=== PATIENT | male | born 1955 | race Caucasian/White ===

== ENCOUNTER 2019-12-06 14:00 | Emergency (ER) | payer OTHER, SELFPAY ==
[2019-12-06 14:02] VITALS: BP 199/127; PULSE 54; RESP 18; TEMP 36.3; O2SAT 99; BMI 24.5
[2019-12-06 14:23] VITALS: O2SAT 97
--- NOTE | 2019-12-06 14:34 | ED.DCSUM_ITS ---
History of Present Illness Chief Complaint: Shortness of Breath Informant: Patient Narrative: She presents the emergency department with a chief complaint of shortness of breath. Patient states that yesterday he began to feel short of breath. After an hour he went to lunch when he came back from lunch he felt extremely chilled with myalgias. He states that he ended up going home from work and had a temperature of 100.7. He states that he has not had any chest pain. He continues to feel short of breath and chilled. No fever today. He went to urgent care and was sent here. He has had COVID diagnosed about 7 weeks ago and states this feels very similar to that. Past Medical History - Allergies and Home Meds Allergies/Adverse Reactions: Allergies No Known Allergies Allergy (Verified 12/06/19 14:04) Prior records reviewed: Yes Surgical History: noncontributory Smoking Status: Never smoker Drugs: None Review of Systems General: Reports: Chills, Fever, Malaise. Denies: Sweats Eyes: Denies: Visual changes - bilaterally, Diplopia ENT: Denies: Rhinorrhea, Sore throat Cardiovascular: Denies: Chest pain, Palpitations Respiratory: Reports: Dyspnea. Denies: Cough, Dyspnea on exertion Gastrointestinal: Denies: Abdominal pain, Nausea, Vomiting, Diarrhea, Melena, Hematochezia Genitourinary: Denies: Dysuria, Hematuria, Frequency Musculoskeletal: Reports: Myalgias. Denies: Back pain, Extremity Pain Skin: Denies: Rash, Wounds Neurological: Denies: Headache, Weakness, Numbness Physical Exam Vital Signs/Narrative: Vital Signs Temp Pulse Resp BP Pulse Ox 12/06/19 14:02 97.3 F L 54 L 18 199/127 H 99 Inital Vital Signs reviewed: Yes General: Well nourished, Well developed, No Acute Distress Head: Normocephalic, Atraumatic Eyes: Perrl, EOMI ENT: Moist mucous membranes, No rhinorrhea Neck: Supple, Nontender Cardiovascular: Regular rate, Regular rhythm, No murmurs Respiratory: No distress, CTA bilaterally, Chest nontender Abdomen: Soft, Nontender, Nondistended, Normal bowel sounds Back: Nontender, Normal Inspection Extremities: Nontender, No edema Skin: Normal color, No rash Neurological: Alert, Oriented x3, Cranial nerves II-XII grossly intact, Normal Strength, Normal Sensation Psychological: Normal affect, Normal Mood Diagnostic/Tx/Re-eval Clinical Impression(s) from Imaging Studies Chest CTA 12/06/19 16:06 IMPRESSION: CTA chest examination, without a demonstrated pulmonary embolism or arterial dissection. Aneurysmal dilatation of the ascending aorta. Small benign-appearing left lung nodules. CT FOLLOW-UP OF SMALL PULMONARY NODULES [employer] GUID[employer] STATEMENT *Nodule size is average of length and width.* Nodule size. Low risk patient. Non smoking history/no known malignancy. 1. <4mm -- No follow-up needed (risk of malignancy <1%) 2. 4-6mm -- Follow up CT at 12 months, if unchanged, no further imaging needed. 3. 6-8mm -- Initial follow up at 6-12 month, then at 18-24 months if no changes. 4. > 8mm -- Follow-up CT at 3, 9, 24 months, PET and /or biopsy. Nodule size. High risk patients. Smoking history/known malignancy. 1. <4mm -- Follow-up 12 months: if unchanged, no further follow-up. 2. 4-6mm -- Initial follow-up at 6-12 months,then at 18-24 months if no change. 3. 6-8mm -- Initial follow-up at 3-6months, then at 9-12 and 24 months if no change. 4. >8mm -- Same as for low risk patient. Electronically Signed: Taiwo Barksdale MD at 16:52 EDT , Service support , Laboratory Last Values WBC 3.8 K/mm3 (4.4-11.0) L 12/06/19 15:20 RBC 5.31 M/mm3 (4.6-6.2) 12/06/19 15:20 Hgb 15.7 g/dL (13.0-16.5) 12/06/19 15:20 Hct 47.0 % (40-54) 12/06/19 15:20 MCV 88.5 fL (80-94) 12/06/19 15:20 MCH 29.6 pg (27.0-32.0) 12/06/19 15:20 MCHC 33.4 g/dL (32-36) 12/06/19 15:20 RDW Std Deviation 43.4 fl (35.1-43.9) 12/06/19 15:20 RDW Coeff of Shayne 13.3 % (11.6-14.6) 12/06/19 15:20 Plt Count 277 K/mm3 (150-450) 12/06/19 15:20 MPV 10.3 fl (6.2-12.0) 12/06/19 15:20 Immature Gran % (Auto) 1.300 % (0.0-0.9) H 12/06/19 15:20 Neut % (Auto) 58.0 % (47-70) 12/06/19 15:20 Lymph % (Auto) 23.6 % (19-41) 12/06/19 15:20 [place] % (Auto) 11.3 % (0-10) H 12/06/19 15:20 Eos % (Auto) 5.0 % (0-5) 12/06/19 15:20 Baso % (Auto) 0.8 % (0-1) 12/06/19 15:20 Absolute Neuts (auto) 2.2 X10^3/uL (2.0-7.7) 12/06/19 15:20 Absolute Lymphs (auto) 0.90 X10^3/uL (0.83-4.51) 12/06/19 15:20 Nucleated RBC % 0 % (0-5) 12/06/19 15:20 Sodium 141 mmol/L (136-145) 12/06/19 15:20 Potassium 3.7 mmol/L (3.5-5.1) 12/06/19 15:20 Chloride 106 mmol/L (98-107) 12/06/19 15:20 Carbon Dioxide 32.0 mmol/L (21.0-32.0) 12/06/19 15:20 Anion Gap 3 (5-15) L 12/06/19 15:20 BUN 12 mg/dL (7-18) 12/06/19 15:20 Creatinine 1.05 mg/dL (0.70-1.30) 12/06/19 15:20 Estim Creat Clear Calc 75.32 ml/min 12/06/19 15:20 Est GFR (MDRD) Af Amer 92 mL/min (>60) 12/06/19 15:20 Est GFR (MDRD) Non-Af 76 mL/min (>60) 12/06/19 15:20 BUN/Creatinine Ratio 11.4 RATIO (10-20) 12/06/19 15:20 Glucose 95 mg/dL (74-106) 12/06/19 15:20 Calcium 8.8 mg/dL (8.5-10.1) 12/06/19 15:20 Total Bilirubin 0.60 mg/dL (0.20-1.00) 12/06/19 15:20 AST 32 U/L (15-37) 12/06/19 15:20 ALT 47 U/L (16-61) 12/06/19 15:20 Alkaline Phosphatase 52 U/L (45-117) 12/06/19 15:20 Troponin I 0.031 ng/mL (<0.045) 12/06/19 15:20 Total Protein 7.2 g/dL (6.4-8.2) 12/06/19 15:20 Albumin 3.2 g/dL (3.2-5.0) 12/06/19 15:20 Globulin 4.0 g/dL (2.2-4.2) 12/06/19 15:20 Albumin/Globulin Ratio 0.8 RATIO (0.9-2.4) L 12/06/19 15:20 - EKG Initial EKG Interpretation: Sinus Rhythm - EKG demonstrated sinus bradycardia with frequent PVCs at a rate of 78. No concerning features of ACS. - Medical Decision Making Patient's labs showed a mild leukopenia at 3.8. CTA of the chest is negative. EKG of heart demonstrates a sinus bradycardia with frequent PVCs. There are less on the monitor than what were recorded on the EKG. He remains pretty hypertensive he tells me that he does check his blood pressure and is typically been about 135. He takes amlodipine and lisinopril. I advised him that he needs to establish new primary care but this is may be difficult for him because he is working on getting new health insurance. I talked about the nodules and the aortic aneurysm. Going to write for an albuterol MDI. Take him off work for the next couple days. If he is not improving or is worsening he needs to return. ED Disposition - Plan for ED Patient: Disposition: Home or Assisted Living Diagnosis: Dyspnea Instructions: ED Dyspnea Prescriptions: Albuterol Inhaler [Ventolin Hfa] 2 puff INHALATION Q4H PRN PRN #1 inhaler PRN Reason: Wheezing Prescription Printed Referrals: Care Physician,No Primary [Primary Care Provider] - Barry Chang MD [STAFF PHYSICIAN] - 3-5 Days Additional Instructions: You need to monitor blood pressure closely. If your blood pressure continues to be elevated your blood pressure medications need to be adjusted. On the CT of your chest today it was noted that you have a small aneurysm of your aorta measuring 4.8 cm. This is classically below the size that would need to be operated on. However it does require follow-up and monitoring. There were several nodules found on your CT of your chest that should also have follow-up. Usually in patients who are non-smokers less than 4 mm do not need follow-up. Ureters are less than 4 mm. If over the next few days you are worsening or you have concerns please return here to the emergency department.
--- NOTE | 2019-12-06 14:34 | EKG12_ITS ---
Test Reason : SOB Blood Pressure : / mmHG Vent. Rate : 078 BPM Atrial Rate : 053 BPM P-R Int : 182 ms QRS Dur : 098 ms QT Int : 394 ms P-R-T Axes : 043 070 040 degrees QTc Int : 449 ms Sinus bradycardia with frequent Premature ventricular complexes Otherwise normal ECG Confirmed by KELLY ALLEN, ADELAIDA ([id number]), commissioning editor PAT ESTRADA ([id number]) on 12/14/2019 12:57:56 P M Referred By: NOY Confirmed By:ANDREW MENDOZA MD
--- NOTE | 2019-12-06 14:37 | NURSING ---
NO OLD EKGS
[2019-12-06 15:36] LABS: Absolute Neutrophil Count 2.2 X10^3/uL (2.0-7.7); Basophil# 0.03 X10^3/uL; Basophil% 0.8 % (0-1); Eosinophil# 0.19 X10^3/uL; Hemoglobin 15.7 g/dL (13.0-16.5); Lymphocyte % 23.6 % (19-41); Mean Corp Hgb Conc 33.4 g/dL (32-36); Mean Corpuscular Hgb 29.6 pg (27.0-32.0); Mean Corpuscular Volume 88.5 fL (80-94); Mean Platelet Vol. 10.3 fl (6.2-12.0); Monocyte# 0.43 X10^3/uL; Monocyte% 11.3 % (0-10); NRBC Flagged by Analyzer 0 % (0-5); Neutrophil # 2.21 X10^3/uL (2.7-7.7); Platelet Count 277 K/mm3 (150-450); RBC Distribution Width CV 13.3 % (11.6-14.6); RBC Distribution Width SD 43.4 fl (35.1-43.9); Red Blood Count 5.31 M/mm3 (4.6-6.2); White Blood Count 3.8 K/mm3 (4.4-11.0)
[2019-12-06 15:46] VITALS: BP 184/107; PULSE 68; RESP 18; O2SAT 97
[2019-12-06 15:58] LABS: ALB/GLOB Ratio 0.8 RATIO (0.9-2.4); AST(SGOT) 32 U/L (15-37); Alanine Aminotransfer ALT/SGPT 47 U/L (16-61); Albumin, Serum 3.2 g/dL (3.2-5.0); Alkaline Phosphatase 52 U/L (45-117); Anion Gap 3 (5-15); BUN 12 mg/dL (7-18); BUN/Creat Ratio 11.4 RATIO (10-20); Calcium,Total 8.8 mg/dL (8.5-10.1); Chloride 106 mmol/L (98-107); Creatinine, Serum 1.05 mg/dL (0.70-1.30); EST Glomerular Filtration Rate 76 mL/min (>60); Est Glom Filt Rate - Afr Amer 92 mL/min (>60); Estimated Creatinine Clearance 75.32 ml/min; Glucose 95 mg/dL (74-106); Potassium 3.7 mmol/L (3.5-5.1); Protein, Total 7.2 g/dL (6.4-8.2); Sodium Level 141 mmol/L (136-145)
--- NOTE | 2019-12-06 16:06 | CT_ITS ---
STUDY: CTA CHEST REASON FOR EXAM: Male, 64 years old. CP, SOB, CHILLS, +COVID 7 WKS AGO RADIATION DOSAGE (If Supplied By Facility): CTDIvol = ( 14.52 ) mGy, DLP = ( 518.45 ) mGycm TECHNIQUE: The examination was performed with the intravenous administration of IV 100ML ISOVUE 370. Post-processing of the angiographic images was performed, with multiplanar reformation and 3D reconstruction. Individualized dose optimization techniques were used for this CT. COMPARISON: None. FINDINGS: Normal enhancement of the main pulmonary artery and right and left pulmonary arteries. There is limited enhancement of the bilateral peripheral pulmonary arteries. There is no demonstrated pulmonary embolism. There is aneurysmal dilatation of the ascending aorta. The transverse diameter of the ascending aorta measures 48 mm''s. There is no demonstrated aortic dissection. Normal heart and pericardium. Normal mediastinum. Normal hilar regions. Normal visualized trachea and bronchi. The lungs are well expanded. There is lower lung atelectasis. There is a 0.3 cm left upper lobe nodule, series 1002 image 171/257. There is 0.4 cm left mid lung nodule, series 1002 image 138/257 . Normal pleura. Normal chest wall structures. Mild degenerative change of the spine. Normal visualized upper abdomen. CT/CTA Chest W/WO Contrast IMPRESSION: CTA chest examination, without a demonstrated pulmonary embolism or arterial dissection. Aneurysmal dilatation of the ascending aorta. Small benign-appearing left lung nodules. CT FOLLOW-UP OF SMALL PULMONARY NODULES [employer] GUID[employer]INES STATEMENT *Nodule size is average of length and width.* Nodule size. Low risk patient. Non smoking history/no known malignancy. 1. <4mm -- No follow-up needed (risk of malignancy <1%) 2. 4-6mm -- Follow up CT at 12 months, if unchanged, no further imaging needed. 3. 6-8mm -- Initial follow up at 6-12 month, then at 18-24 months if no changes. 4. > 8mm -- Follow-up CT at 3, 9, 24 months, PET and /or biopsy. Nodule size. High risk patients. Smoking history/known malignancy. 1. <4mm -- Follow-up 12 months: if unchanged, no further follow-up. 2. 4-6mm -- Initial follow-up at 6-12 months,then at 18-24 months if no change. 3. 6-8mm -- Initial follow-up at 3-6months, then at 9-12 and 24 months if no change. 4. >8mm -- Same as for low risk patient. Electronically Signed: Taiwo Barksdale MD at 16:52 EDT , Service support ,
[2019-12-06 17:34] VITALS: BP 180/96
[2019-12-06 17:52] LABS: Bacteria 0 SEEN /hpf (None Seen); Mucous, Urine 0 SEEN /hpf (<or=2+); Red Blood Cells-Urine 0 SEEN /hpf (0-5); Squamous Epithelial Cells - UA 0 SEEN /hpf (0-5); White Blood Cells 0 SEEN /hpf (0-5)
[2019-12-06 17:58] LABS: Color, Urine Yellow (Yellow); Glucose, Dipstick Normal (Normal); Ketone-Dipstick Negative (Negative); Leukocyte Esterase-Dipstick Negative /ul (Negative); Nitrite-Dipstick Negative (Negative); Occult Blood-Urine Negative /ul (Negative); Protein-Dipstick Negative (Negative); Specific Gravity, Urine 1.015 (1.002-1.030); Urine Bilirubin Dipstick Negative (Negative); Urine Clarity Clear (Clear); Urine Urobilinogen Normal (Normal)
== END 2019-12-06 17:40 | disposition home or self-care (01) ==
PROVIDERS: Emergency Provider Emergency Medicine
DX: R06.00 Dyspnea, unspecified (principal); I71.2 Thoracic aortic aneurysm, without rupture; Z87.891 Personal history of nicotine dependence; R91.8 Other nonspecific abnormal finding of lung field
CPT/HCPCS: 71275; 80053; 81001; 84484; 85025; 93005; 99283; Q9967; A4216

== ENCOUNTER 2023-04-13 09:31 | Emergency (ER) | payer MEDICARE, SELFPAY ==
[2023-04-13 09:32] VITALS: BP 167/87; PULSE 55; RESP 14; TEMP 36.8; O2SAT 99; BMI 25.8
--- NOTE | 2023-04-13 10:00 | RAD_ITS ---
STUDY: X-RAY - UNILATERAL RIBS ( LEFT ) WITH CHEST REASON FOR EXAM: Male, 67 years old. Left lower anterior rib pain following a fall. TECHNIQUE - RIBS: 4 view(s) of the ribs. TECHNIQUE - CHEST: Single PA view of the chest. COMPARISON: None. FINDINGS - RIBS: Normal visualized ribs without a demonstrated fracture. FINDINGS - CHEST: The lungs are clear and expanded. There is no demonstrated pleural abnormality. Normal size heart. Normal mediastinum and leta. Normal visualized pulmonary arteries. Normal visualized aortic arch and descending thoracic aorta. Normal visualized thoracic spine. Normal visualized ribs, clavicles, and shoulders. There is no demonstrated abnormality of the visualized soft tissue structures of the upper abdomen. RAD/Ribs Uni Min 3V w/PA Chest IMPRESSION: RIBS: Normal x-ray examination of the ribs. CHEST: Normal x-ray examination of the chest. Electronically Signed: Kartik Serrano MD at 10:45 EST ,
[2023-04-13] MEDS: HYDROcodone Bitartrate/Apap 5/325 Tablet PO (10:10)
--- NOTE | 2023-04-13 10:59 | EX.ED.GENINJ ---
HPI History of Present Illness Chief Complaint: Chest Other Informant: patient Narrative Narrative: Patient fell several days ago, this past week, he states he slipped on some steps outside and the curvature of the step hit him in the left lower posterior rib cage. He has been having pain ever since especially when he is lying down trying to sleep at night. It hurts more to move, if he takes a really deep breath it hurts but he denies any dyspnea or chest discomfort. No abdominal discomfort, hematuria, or symptoms radiating down his legs. No other injuries. [facility] Medical History HLD (hyperlipidemia) HTN (hypertension) TIA (transient ischemic attack) Home Medications albuterol sulfate 90 mcg/actuation aerosol inhaler 2 puff inhalation Q4H PRN PRN Wheezing ##1 12/06/19 [Rx Last Taken Unknown] hydrocodone-acetaminophen 5-325mg 5mg-325mg 1 tab PO Q6H PRN PRN Pain 3 days #12 TABLETS 04/13/23 [Rx Last Taken Unknown] Allergy/AdvReac Type Severity Reaction Status Date / Time No Known Allergies Allergy Verified 04/13/23 09:32 Surgical History (Updated 04/13/23 @ 10:09 by Kathy Epstein) Hx of appendectomy Hx of tonsillectomy Social History Smoking Status: Former smoker ROS ROS ED Constitutional Constitutional ED: Denies chills or fever(s) Eyes Eyes: Denies change in vision or diplopia ENT ENT ED: Denies rhinorrhea or sore throat Cardiovascular Cardiovascular: Denies chest pain or palpitations Respiratory/Chest Respiratory/Chest: Denies cough or dyspnea Gastrointestinal Gastrointestinal: Denies abdominal pain, diarrhea, nausea or vomiting Genitourinary Genitourinary ED: Denies dysuria or hematuria Musculoskeletal Musculoskeletal: Reports back pain; Denies neck pain Integumentary Denies abscess or rash Neurologic Neurologic: Denies headache(s), paresthesias or weakness Psychiatric Psychiatric: Denies anxiety or suicidal thoughts EXAM Physical Exam Const Vital Signs: 04/13/23 09:32 04/13/23 10:08 Temperature 98.2 F Temperature Source Temporal Pulse Rate 55 L Respiratory Rate 14 Respiratory Effort Normal Non-Labored Blood Pressure 167/87 H Blood Pressure Mean 113 Pulse Ox 99 Oxygen Delivery Method Room Air Positive well nourished and well developed General Appearance ED: well developed and NAD HEENT Reports moist mucous membranes normocephalic and atraumatic Eyes PERRL and EOMs intact bilaterally Neck full ROM and supple Chest Wall inspection of chest normal and palpation of chest normal Resp normal respiratory effort and clear to auscultation bilaterally Cardio regular rate, regular rhythm and no murmurs GI non-tender and non-distended Auscultation: normoactive bowel sounds Palpation: soft Back/Spine no CVA tenderness and normal to inspection Back/Spine Narrative: Patient has no midline spinal tenderness. There is no signs of outward Trauma/injury in the back, but he has diffuse tenderness in the right lower posterior rib cage, approximately ribs 8-11. General Back: other limited ROM Extremity normal to inspection General Extremety ED: Negative for edema, pulses abnormal or tenderness General Extremity: Negative for edema or pulses abnormal Neuro oriented x3, CN's II-XII intact bilaterally and no sensory deficits noted Sensorium / Orientation: awake and alert Motor Exam: strength 5/5 throughout Skin no rashes or lesions noted and no wounds MDM MDM MDM Narrative Medical decision making narrative: 4 view x-ray series of the left rib cage including PA chest normal in my interpretation no fracture or pneumothorax. Radiology in agreement. No concern here for renal contusion since he has had no urinary symptoms or hematuria at this time. Reassured likely contusion, nondisplaced fracture is not able to be completely ruled out, supportive care advised, he was given a work note that he does lifting at work, and he states he is barely able to move much less lift anything which is understandable. He was given [place] here which helped I will give him a short course for nighttime use. Radiography Diagnostic Testing: Clinical Impression(s) from Imaging Studies Ribs w/Chest X-Ray 04/13/23 10:00 IMPRESSION: RIBS: Normal x-ray examination of the ribs. CHEST: Normal x-ray examination of the chest. Electronically Signed: Kartik Serrano MD at 10:45 EST , Discharge Plan Triage Chief Complaint: Chest Other ED Provider: Taiwo Marino Dx/Rx/DC Orders Clinical Impression: Contusion of rib on left side Instructions: ED Rib Contusion or Minor Fracture Prescriptions: New hydrocodone-acetaminophen [hydrocodone-acetaminophen] 5-325 mg tablet 1 tab PO Q6H PRN PRN (Reason: Pain) 3 Days Qty: 12 0RF No Action albuterol sulfate 1 INHALER inhaler 2 puff inhalation Q4H PRN PRN (Reason: Wheezing) Qty: 1 0RF Rx Instructions: dispense with Spacer Stand Alone Forms: ED Work / School Excuse Primary Care Provider: Dillan Abel Referrals: Dillan Abel MD [Primary Care Provider] - 1-2 Weeks Disposition Disposition: Home, Self Care
--- OUTSIDE RECORDS SUMMARY | 2023-04-13 11:09 | XMS RPT_ITS | CCD ---
Author Name Unknown Address [address] [place] [address] Organization [facility] Care Team Providers Care Hand Salter Name Role Phone NAT, JAYRAM Unavailable Unavailable MARI, ROGERIO Unavailable Unavailable NAT, JAYRAM Unavailable Unavailable NAT, JAYRAM Unavailable Unavailable MARI, ROGERIO Unavailable Unavailable NAT, JAYRAM Unavailable Unavailable Mari, Dillan Unavailable Unavailable Mari, Dillan Unavailable Unavailable NAT, JAYRAM Unavailable Unavailable Mari, Dillan Unavailable Unavailable Mari, Dillan Unavailable Unavailable NAT, JAYRAM Unavailable Unavailable Mari, Dillan Unavailable Unavailable Dillan Mari MD Primary Care Provider [phone] Colten ALLEN, Dillan Lyle Primary Care Provider [phone] DILLAN MARI Primary Care Unavailable DILLAN MARI Attending Unavailable DILLAN MARI Referring Unavailable DILLAN MARI Primary Care Unavailable MARIDILLAN ZUNIGA Referring Unavailable DILLAN MARI Primary Care Unavailable DILLAN MARI Attending Unavailable DILLAN MARI Primary Care Unavailable JANET SRIVASTAVA Referring Unavailable DILLAN MARI Primary Care Unavailable DILLAN MARI Referring Unavailable DILLAN MARI Primary Care Unavailable OLDER JANET Attending Unavailable DILLAN MARI Primary Care Unavailable DILLAN MARI Referring Unavailable Medications Current Medications Medication Drug Class(es) Dates Sig (Normalized) Sig (Original) perflutren lipid microspheres 1.3 mL in NaCl (PF) 0.9% 10 mL injection (DEFINITY) (4 sources) Start: 02-27-2021 End: 05-29-2022 perflutren lipid microspheres 1.3 mL in NaCl (PF) 0.9% 10 mL injection (DEFINITY) 125 ml sodium chloride 9 mg/ml prefilled syringe (4 sources) Start: 02-27-2021 End: 05-29-2022 sodium chloride 0.9 % (flush) 10 mL (BD POSIFLUSH) Completed/Discontinued Medications Medication Drug Class(es) Dates Sig (Normalized) Sig (Original) amLODIPine 10 mg oral tablet (7 sources) Dihydropyridine Calcium Channel Eloina Start: 11-23-2022 take 1 tablet by mouth once daily amLODIPine (NORVASC) 10 mg tablet Take 1 tablet by mouth once daily. 90 tablet 3 11/23/2022 Active Problems Active Problems Problem Classification Problem Date Documented Date Episodic/Chronic Acute cerebrovascular disease (8 sources) Cerebellar infarction; Translations: [Cerebral infarction, unspecified] Onset: 02-27-2021 02-27-2021 Chronic Disorders of lipid metabolism (10 sources) Mixed hyperlipidemia; Translations: [Mixed hyperlipidemia] Onset: 07-30-2005 08-31-2017 Chronic Esophageal disorders (7 sources) Gastroesophageal reflux disease; Translations: [Gastro-esophageal reflux disease without esophagitis] Onset: 02-27-2021 02-27-2021 Chronic Essential hypertension (11 sources) Benign essential hypertension; Translations: [Essential (primary) hypertension] Onset: 07-30-2005 08-31-2017 Chronic Immunizations and screening for infectious disease (2 sources) Needs influenza immunization; Translations: [Encounter for immunization] Episodic Other ear and sense organ disorders (1 source) Impacted cerumen of bilateral ears; Translations: [Impacted cerumen, bilateral] Episodic Other liver diseases (3 sources) Lesion of liver; Translations: [Liver disease, unspecified] Onset: 04-21-2021 04-21-2021 Chronic Other liver diseases (1 source) Liver cyst; Translations: [Other specified diseases of liver] Chronic Other screening for suspected conditions (not mental disorders or infectious disease) (12 sources) Raised prostate specific antigen; Translations: [Elevated prostate specific antigen [PSA]] Onset: 08-31-2017 08-31-2017 Episodic Other screening for suspected conditions (not mental disorders or infectious disease) (1 source) Elevated prostate specific antigen [PSA]; Translations: [Elevated prostate specific antigen (PSA)] Onset: 08-31-2017 Residual codes; unclassified (4 sources) Obstructive sleep apnea syndrome; Translations: [Obstructive sleep apnea (adult) (pediatric)] Onset: 09-14-2021 09-14-2021 Chronic Residual codes; unclassified (1 source) Other specified postprocedural states; Translations: [Other specified postprocedural states] Onset: 01-26-2018 Unclassified (2 sources) Unknown / UNK(Unknown) Onset: 08-31-2017 Past or Other Problems Problem Classification Problem Date Documented Da te Episodic/Chronic Blindness and vision defects (7 sources) Right homonymous hemianopsia; Translations: [Homonymous bilateral field defects, right side] Onset: 02-27-2021 02-27-2021 Episodic Cardiac dysrhythmias (7 sources) Bradycardia; Translations: [Bradycardia, unspecified] Onset: 02-17-2021 02-17-2021 Episodic Genitourinary symptoms and ill-defined conditions (3 sources) Nocturia; Translations: [Nocturia] Onset: 2021 2021 Episodic Other lower respiratory disease (4 sources) Dyspnea; Translations: [Shortness of breath] Onset: 02-18-2021 02-18-2021 Episodic Other non-epithelial cancer of skin (7 sources) Squamous cell carcinoma of lip; Translations: [Squamous cell carcinoma of skin of lip] Onset: 08-31-2017 08-31-2017 Episodic Unclassified (1 source) Elevated prostate specific antigen (PSA) Onset: 01-12-2018 Results Test Name Value Interpretation Reference Range Facil ity Vital Signs Date Time Vital Sign Value Performing Clinician Faci lity 05-21-2022 10:03-0500 Diastolic blood pressure 88 mm[Hg] Dillan Mari MD Work Phone: [facility] 05-21-2022 10:03-0500 Heart rate 58 /min Dillan Mari MD Work Phone: [facility] 05-21-2022 10:03-0500 Systolic blood pressure 142 mm[Hg] Dillan Mari MD Work Phone: [facility] 05-21-2022 09:54-0500 Body weight 79.83 kg Dillan Mari MD Work Phone: [facility] 05-21-2022 09:54-0500 Respiratory rate 12 /min Dillan Mari MD Work Phone: [facility] 02-20-2022 08:42-0500 Body height 177.8 cm Dillan Mari MD Work Phone: [facility] 02-20-2022 08:42-0500 Body temperature 97.3 [degF] Dillan Mari MD Work Phone: [facility] 02-20-2022 08:42-0500 Body weight 79.38 kg Dillan Mari MD Work Phone: [facility] 02-20-2022 08:42-0500 Diastolic blood pressure 68 mm[Hg] Dillan Mari MD Work Phone: [facility] 02-20-2022 08:42-0500 Heart rate 59 /min Dillan Mari MD Work Phone: [facility] 02-20-2022 08:42-0500 Respiratory rate 12 /min Dillan Mari MD Work Phone: [facility] 02-20-2022 08:42-0500 SaO2% (BldA) [Mass fraction] 96 % Dillan Mari MD Work Phone: [facility] 02-20-2022 08:42-0500 Systolic blood pressure 110 mm[Hg] Dillan Mari MD Work Phone: [facility] Encounters Encounter Date Encounter Type Care Provider Facility Start: 11-30-2022 End: 11-30-2022 ambulatory DILLAN MARI Facility:[facility] Start: 11-30-2022 End: 11-30-2022 Subsequent hospital visit by physician [facility] Work Phone: Radiology Procedures Date Procedure Procedure Detail Performing Clinician Start: 11-30-2022 Us abdominal aorta r eal time screen study aaa Janet Older 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 Work Phone: Start: 11-25-2022 Lipid 1996 panel - S damon or Plasma Us 2 Work Phone: Start: 02-20-2022 [employer]cast-BIONTetrigg COVI D-19 BIVALENT BOOSTER VACCINE, AGE 12+ YR Dillan Mari MD Work Phone: Start: 02-20-2022 INFLUENZA VACCINE QUADRIVALENT 6 MO - 64 YRS IM Dillan Mari MD Work Phone: Start: 06-18-2021 Mri brain brain stem w/o contrast material Dillan Mari MD Work Phone: Start: 06-18-2021 Us abdominal real ti me w/image limited Haley Briseno 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 Work Phone: Start: 07-23-2020 Adult depression scr eening assessment Mri (I-Stat/1.5t) Work Phone: Start: 07-23-2020 Colonoscopy Mri (I-Sta t/1.5t) Work Phone: Plan of Treatment Date Care Activity Detail Author Start: 07-23-2030 Colonoscopy COLONOSCOPY [facility] Start: 07-23-2030 COLORECTAL CANCER SCREENING COLORECTAL CANCER SCREENING [facility] Start: 11-26-2027 Lipid 1996 panel - Serum or Plasma Lipid Screening [facility] Start: 11-26-2027 Prostate Cancer Screening Discussion Prostate Cancer Screening Discussion [facility] Start: 05-20-2027 LIPID SCREEN LIPID SCREEN [facility] Start: 05-20-2027 PROSTATE CANCER SCREENING DISCUSSION PROSTATE CANCER SCREENING DISCUSSION [facility] Start: 02-12-2026 LIPID SCREEN LIPID SCREEN [facility] Start: 11-25-2025 Diabetes Screening Diabetes Screening [facility] Start: 06-28-2025 PROSTATE CANCER SCREENING DISCUSSION PROSTATE CANCER SCREENING DISCUSSION [facility] Start: 05-19-2025 DIABETES SCREEN DIABETES SCREEN [facility] Start: 11-19-2024 DIABETES SCREEN DIABETES SCREEN [facility] Start: 06-01-2024 Urine microalbumin profile [facility] Start: 02-19-2024 DIABETES SCREEN DIABETES SCREEN [facility] Start: 11-24-2023 Annual PCP Team Chronic Disease Visit Annual PCP Team Chronic Disease Visit [facility] Start: 07-05-2023 COLOGUARD (FIT-DNA) COLOGUARD (FIT-DNA) [facility] Start: 05-22-2023 ANNUAL PCP TEAM CHRONIC DISEASE VISIT ANNUAL PCP TEAM CHRONIC DISEASE VISIT [facility] Start: 02-20-2023 ANNUAL PCP TEAM CHRONIC DISEASE VISIT ANNUAL PCP TEAM CHRONIC DISEASE VISIT [facility] Start: 02-20-2023 BP CONTROLLED (<130/80) BP CONTROLLED (<130/80) [facility] Start: 11-21-2022 End: 01-21-2023 Basic metabolic 2000 panel - Serum or Plasma BASIC METABOLIC PNL Lab Routine Mixed hyperlipidemia Expected: 11/21/2022, Expires: 01/21/2023 [facility] Work Phone: Immunizations Immunization Date Immunization Notes Care Provider Fa cility 11-23-2022 influenza (HD-IIV4) vaccine, age 65+ yr, high dose, quadrivalent, PF (FLUZONE HIGH-DOSE) Us 2 Work Phone: [facility] Work Phone: 11-23-2022 pneumococcal (PCV20) vaccine, 20 valent (PREVNAR 20) Us 2 Work Phone: [facility] Work Phone: 02-20-2022 COVID-19 booster vaccine, age 12+ yr, bivalent (PFIZER-BIONTECH) Dillan Mari MD Work Phone: [facility] Work Phone: 02-20-2022 influenza, injectabl e, quadrivalent, contains preservative Dillan Mari MD Work Phone: [facility] Work Phone: 02-27-2021 COVID-19 vaccine, ag e 12+ yr (PFIZER-BIONTECH - PURPLE TOP) Mri (I-Stat/1.5t) Work Phone: [facility] Work Phone: 02-17-2021 influenza, injectabl e, quadrivalent, contains preservative Mri (I-Stat/1.5t) Work Phone: [facility] Work Phone: 06-24-2020 COVID-19 vaccine, ag e 12+ yr (PFIZER-BIONTECH - PURPLE TOP) Mri (I-Stat/1.5t) Work Phone: [facility] Work Phone: 06-01-2020 COVID-19 vaccine, ag e 12+ yr (PFIZER-BIONTECH - PURPLE TOP) Mri (I-Stat/1.5t) Work Phone: [facility] Work Phone: 12-28-2018 influenza, seasonal, injectable Mri (I-Stat/1.5t) Work Phone: [facility] 06-01-2014 tetanus toxoid, redu kris diphtheria toxoid, and acellular pertussis vaccine, adsorbed Mri (I-Stat/1.5t) Work Phone: [facility] 01-13-2002 tetanus and diphther ia toxoids, adsorbed, preservative free, for adult use (5 Lf of tetanus toxoid and 2 Lf of diphtheria toxoid) Mri (I-Stat/1.5t) Work Phone: [facility] Work Phone: Payers Date Payer Category Payer Unknown [id number] 2022 Unknown [id number] 2020 Unknown 2020 Unknown MMO MMO [employer] [id number] 2020-Present [phone] [address] [place] [address] O [id number] 2020 Unknown [id number] 1957 Unknown [id number] 1955 Unknown [id number] 1955 Unknown [id number] Unknown [id number] Social History Date Type Detail Facility Start: 02-20-2022 Tobacco smoking stat us CAIS Ex-smoker [facility] Work Phone: End: 03-15-1987 History of tobacco use Current smoker [facility] Work Phone: Start: 02-27-2021 End: 11-23-2022 Alcohol intake Current drinker of alcohol (finding) [facility] Start: 02-27-2021 End: 11-23-2022 Alcohol intake [facility] Start: 08-31-2017 End: 02-20-2022 Tobacco Comment 30 packs for lifetime [facility] Start: 1955 Sex Assigned At Not on file [facility] Start: 01-28-2021 End: 02-27-2021 Exposure to SARS-CoV-2 (event) Not sure [facility] End: 03-15-1987 History of tobacco use Cigarette Smoker [facility] Work Phone: Start: 02-20-2022 Tobacco use and exposure Smoke less tobacco non-user [facility] Work Phone: Start: 08-12-2021 End: 05-21-2022 History SDOH Physical Activity DPW 3 [facility] Start: 08-12-2021 End: 05-21-2022 History SDOH Stress 2 [facility] Start: 05-21-2022 History SDOH Alcohol Frequency 4 [facility] Start: 05-21-2022 History SDOH Alcohol Std Drinks 1 [facility] Start: 05-21-2022 History SDOH Social Connections Phone 5 [facility] Start: 05-21-2022 End: 11-23-2022 Social connection and isolation panel [facility] Do you belong to any clubs or organizations such as faith groups, unions, fraternal or athletic groups, or school groups? No [facility] Are you now , , , , never or living with a partner? [facility] How often to you hav e a drink containing alcohol? 2-3 time sa week [facility] How many standard dr inks containing alcohol do you have on a typical day? 1 or 2 [facility] How often do you hav e 6 or more drinks on 1 occasion? Never [facility] How hard is it for y ou to pay for the very basics like food, housing, medical care, and heating Not very hard [facility] Adult Depression Scr eening Assessment 0 [facility] Work Phone: Do you feel stress - tense, restless, nervous, or anxious, or unable to sleep at night because your mind is troubled all the time - these days [OSQ] Only a little [facility] (I/We) worried wheth er (my/our) food would run out before (I/we) got money to buy more. Never true [facility] Clinical Notes 07-23-2020 to 11-30-2022 Krista Torres RDMS - 11/30/2022 7:00 AM Earl Mckeon LPN - 05/21/2022 10:49 AM Gwen Mari MD - 05/21/2022 10:15 AM ESTPatient Instructions Note Date & Type Note Facility 11-30-2022 Note HNO ID: [id number] Author: Krista Torres RDMS Service: ? Author Type: Wallpaper Installer Type: Progress Notes Filed: 11/30/2022 9:25 AM Note Text: Radiology Service Progress Note PATIENT NAME: Garrett Dewey DATE OF SERVICE: November 30, 2022 TIME: 9:25 AM PATIENT IDENTITY VERIFICATION COMPLETED USING TWO (2) IDENTIFIERS: Name and Date of confirmed by patient verbally. FALL SCREENING: Has the patient had 2 falls in the last year or 1 fall with injury or currently using an Ambulatory Assistive Device (Walker, Cane, Wheelchair, Crutches, etc.)? No PATIENT GENDER DATA: Male PATIENT RELEVANT IMPLANT DATA REVIEWED: Not Applicable RADIOLOGY DEPARTMENT: Ultrasound PERIPHERAL IV DATA: Not applicable SIGNED BY: Krista Torres RDMS RVT November 30, 2022 9:25 AM [facility] 11-30-2022 History of Presen t illness Narrative Radiology Service Progress Note PATIENT NAME: Garrett Dewey DATE OF SERVICE: November 30, 2022 TIME: 9:25 AM PATIENT IDENTITY VERIFICATION COMPLETED USING TWO (2) IDENTIFIERS: Name and Date of confirmed by patient verbally. FALL SCREENING: Has the patient had 2 falls in the last year or 1 fall with injury or currently using an Ambulatory Assistive Device (Walker, Cane, Wheelchair, Crutches, etc.)? No PATIENT GENDER DATA: Male PATIENT RELEVANT IMPLANT DATA REVIEWED: Not Applicable RADIOLOGY DEPARTMENT: Ultrasound PERIPHERAL IV DATA: Not applicable SIGNED BY: Krista Torres RDMS RVT November 30, 2022 9:25 AM documented in this encounter [facility] 11-23-2022 Note HNO ID: [id number] Author: Janet Srivastava APRN.PAINTING AND COATING WORKER Service: ? Author Type: Nurse Practitioner Type: Progress Notes Filed: 11/23/2022 4:08 PM Note Text: CC: Patient presents with: F/U 6 Month Immunizations: Flu vaccination HPI Garrett Dewey is a 67 year old male who presents today for above. Patient is doing well overall. Denies any concerns today. Taking all medications as prescribed without side effects except he has been out of Norvasc 10 mg for almost 6 weeks. He does not check his BP at home. He reports excessive daytime sleepiness. He had home sleep study last year that showed moderate EMMANUEL. He was referred to sleep medicine at last appointment in May but never scheduled. REVIEW OF SYSTEMS GENERAL: Negative for malaise, significant weight loss, fever, chill, sweats RESPIRATORY: Negative for cough, wheezing and shortness of breath CARDIOVASCULAR: Negative for chest pain, leg swelling, palpitations, claudication, orthopnea, and paroxysmal nocturnal dyspnea PAST MEDICAL HISTORY Diagnosis Date Cerebellar infarct (HCC) 02/27/2021 Essential hypertension, benign 07/30/2005 GERD (gastroesophageal reflux disease) 02/27/2021 Internal hemorrhoids without mention of complication Mixed hyperlipidemia 07/30/2005 EMMANUEL (obstructive sleep apnea) 09/14/2021 PSA elevation 08/31/2017 Right homonymous hemianopsia 02/27/2021 Squamous cell cancer of lip 08/31/2017 [facility] Unspecified essential hypertension PAST SURGICAL HISTORY Procedure Laterality Date APPENDECTOMY HX 1992 COLONOSCOPY FLX DX W/COLLJ SPEC WHEN PFRMD 04/09/2010 COLONOSCOPY FLX DX W/COLLJ SPEC WHEN PFRMD 07/23/2020 ESOPHAGOGASTRODUODENOSCOPY TRANSORAL DIAGNOSTIC 07/23/2020 MOHS MICROGRAPHIC H/N/H/F/G 1ST STAGE 5 BLOCKS 2016 Lip PROSTATE BIOPSY 01/12/2018 negative. SKIN BIOPSY HX TONSILLECTOMY HX TONSILLECTOMY PRIMARY/SECONDARY Tonsillectomy VASECTOMY UNI/BI SPX W/POSTOP SEMEN EXAMS 1989 VASECTOMY UNI/BI SPX W/POSTOP SEMEN EXAMS 2002 reversal ALLERGIES Patient has no known allergies. MEDICATIONS atorvastatin (LIPITOR) 20 mg tablet Take 1 tablet by mouth daily at bedtime. For cholesterol lisinopril-hydroCHLOROthiazide (ZESTORETIC) 20-12.5 mg per tablet Take 2 tablets by mouth once daily. amLODIPine (NORVASC) 10 mg tablet Take 1 tablet by mouth once daily. multivitamin ORAL Tab Take one(1) tablet daily. omeprazole (PRILOSEC) 40 mg capsule Take 1 capsule by mouth once daily as needed (acid indigestion.). FAMILY HISTORY Problem Relation Age of Onset Cancer Mother breast Hypertension Mother Lipids Mother other (Other) Father had a history of colitis - no longer does None Sister Skin Cancer Sister None Brother Social History Tobacco Use Smoking status: Former Types: Cigarettes Quit date: 03/15/1987 Years since quittin.7 Smokeless tobacco: Never Tobacco comments: 30 packs for lifetime Vaping Use Vaping Use: Never used Substance Use Topics Alcohol use: Yes Alcohol/week: 12.0 standard drinks of alcohol Types: 6 Standard drinks or equivalent, 6 Cans of Beer (12oz) per week Drug use: No PHYSICAL EXAM BP 154/91 Pulse (!) 52 Resp 16 Wt 79.4 kg (175 lb) BMI 25.11 kg/m? General Appearance: well appearing, in no acute distress, alert Lungs: Lungs clear to auscultation. No wheezing, rhonchi, rales. Heart: RRR without murmur, gallop, or rubs. No ectopy Health maintenance reviewed with patient: ABDOMINAL AORTIC ANEURYSM SCREENING Never done SHINGRIX VACCINE(1 of 2) Never done BP CONTROLLED (<130/80) due on 05/16/2022 ADVANCE DIRECTIVE DISCUSSION Never done COVID-19 VACCINE(6 - Pfizer series) due on 2022 PNEUMOCOCCAL: 65+(1 - PCV) Never done INFLUENZA(1) due on 11/13/2022 ANNUAL PCP TEAM CHRONIC DISEASE VISIT due on 05/22/2023 DTAP,TDAP,TD(2 - Td or Tdap) due on 06/01/2024 DIABETES SCREEN due on 05/19/2025 LIPID SCREEN due on 05/20/2027 PROSTATE CANCER SCREENING DISCUSSION due on 05/20/2027 COLORECTAL CANCER SCREENING due on 07/23/2030 DEPRESSION ASSESSMENT Completed HEPATITIS C SCREENING Completed HIV SCREENING Completed HPV VACCINE Aged Out DATA REVIEWED: Most recent labs ASSESSMENT/PLAN: 1. Essential hypertension, benign - ICD9: 401.1, ICD10: I10 (primary diagnosis) - Uncontrolled, [facility] has [facility] - Continue current medications - Recommend home blood pressure monitoring, to bring results to next visit - Encouraged sodium restriction, DASH or Mediterranean diet - Follow up in 3 months for hypertension visit 2. EMMANUEL (obstructive sleep apnea) - ICD9: 327.23, ICD10: G47.33 Needs to schedule with sleep medicine 3. PSA elevation - ICD9: 790.93, ICD10: R97.20 Recheck 4. Bradycardia - ICD9: 427.89, ICD10: R00.1 Chronic, asymptomatic 5. Need for influenza vaccination - ICD9: V04.81, ICD10: Z23 - INFLUENZA VACCINE, PRSV FREE, AGE 65+ YR, HIGH DOSE, QUADRIVALENT (FLUZON (more content not included)... [facility] 05-21-2022 Note HNO ID: [id number] Author: Briseida Mckeon LPN Service: ? Author Type: ? Type: Progress Notes Filed: 05/21/2022 10:49 AM Note Text: Ambulatory Ear Lavage Pre-treatment: Warm water Treatment: Both ears Equipment and Irrigation solution and Volume used: Single use syringe with single use irrigation tip Return flow appearance: Brown Patient tolerated procedure: yes Post-treatment: Post Irrigation Post-treatment: Ear Canal/Tympanic membrane assessed by BOGDAN Mari [facility] 05-21-2022 Note HNO ID: [id number] Author: Dillan Mari MD Service: ? Author Type: Physician Type: Progress Notes Filed: 05/21/2022 10:46 AM Note Text: This note was created using NoteWriter. Subjective Patient presents with: Physical Garrett Dewey is a 66 year old male. He felt well and had no concerns, other than some hearing loss from wax buildup. His hypertension had been controlled. He was watching his diet. He had no follow up to the finding of obstructive sleep apnea. We reviewed his lab results. Review of Systems Constitutional: Negative. HENT: Negative for ear discharge and ear pain. Eyes: Negative. Respiratory: Negative. Cardiovascular: Negative. Gastrointestinal: Negative. Genitourinary: Positive for frequency. Negative for difficulty urinating and dysuria. Musculoskeletal: Negative. Skin: Negative. Neurological: Negative. Psychiatric/Behavioral: Negative. ACTIVE PROBLEM LIST Essential Hypertension, Benign Mixed Hyperlipidemia Squamous Cell Cancer of Lip [facility] Elevation Bradycardia Gerd (Gastroesophageal Reflux Disease) Right Homonymous Hemianopsia Cerebellar Infarct (Hcc) Nocturia Emmanuel (Obstructive Sleep Apnea) PAST SURGICAL HISTORY Procedure Laterality Date APPENDECTOMY HX 1992 COLONOSCOPY FLX DX W/COLLJ SPEC WHEN PFRMD 04/09/2010 COLONOSCOPY FLX DX W/COLLJ SPEC WHEN PFRMD 07/23/2020 ESOPHAGOGASTRODUODENOSCOPY TRANSORAL DIAGNOSTIC 07/23/2020 MOHS MICROGRAPHIC H/N/H/F/G 1ST STAGE 5 BLOCKS 2016 Lip PROSTATE BIOPSY 01/12/2018 negative. SKIN BIOPSY HX TONSILLECTOMY HX TONSILLECTOMY PRIMARY/SECONDARY Tonsillectomy VASECTOMY UNI/BI SPX W/POSTOP SEMEN EXAMS 1989 VASECTOMY UNI/BI SPX W/POSTOP SEMEN EXAMS 2002 reversal FAMILY HISTORY Problem Relation Age of Onset Cancer Mother breast Hypertension Mother Lipids Mother other (Other) Father had a history of colitis - no longer does None Sister Skin Cancer Sister None Brother Social History Tobacco Use Smoking status: Former Types: Cigarettes Quit date: 03/15/1987 Years since quittin.2 Smokeless tobacco: Never Tobacco comments: 30 packs for lifetime Vaping Use Vaping Use: Never used Substance Use Topics Alcohol use: Yes Alcohol/week: 15.0 standard drinks Types: 6 Cans of Beer (12oz) per week Drug use: No Current Outpatient Medications Medication Sig omeprazole (PRILOSEC) 40 mg capsule Take 1 capsule by mouth once daily as needed (acid indigestion.). amLODIPine (NORVASC) 10 mg tablet Take 1 tablet by mouth once daily. atorvastatin (LIPITOR) 20 mg tablet Take 1 tablet by mouth daily at bedtime. For cholesterol lisinopril-hydroCHLOROthiazide (PRINZIDE,ZESTORETIC) 20-12.5 mg per tablet Take 2 tablets by mouth once daily. multivitamin ORAL Tab Take one(1) tablet daily. aspirin, enteric coated (ASPIRIN, ENTERIC COATED) 81 mg EC tablet Take 1 tablet by mouth once daily. No current facility-administered medications for this visit. Objective BP 142/88 (BP Site: Left Arm, BP Position: Sitting, BP Cuff Size: Large Adult) Pulse (!) 58 Resp 12 Wt 79.8 kg (176 lb) BMI 25.25 kg/m? Physical Exam Constitutional: Appearance: Normal appearance. HENT: Head: Normocephalic. Right Ear: External ear normal. There is impacted cerumen. Left Ear: External ear normal. There is impacted cerumen. Mouth/Throat: Pharynx: Oropharynx is clear. Eyes: General: No scleral icterus. Extraocular Movements: Extraocular movements intact. Conjunctiva/sclera: Conjunctivae normal. Cardiovascular: Rate and Rhythm: Normal rate and regular rhythm. Heart sounds: No murmur heard. No gallop. Pulmonary: Effort: Pulmonary effort is normal. Breath sounds: Normal breath sounds. Abdominal: Palpations: Abdomen is soft. Tenderness: There is no abdominal tenderness. Musculoskeletal: General: No swelling, tenderness or deformity. Normal range of motion. Right lower leg: No edema. Left lower leg: No edema. Lymphadenopathy: Cervical: No cervical adenopathy. Neurological: General: No focal deficit present. Mental Status: He is alert. Gait: Gait normal. Psychiatric: Mood and Affect: Mood normal. Component Latest Ref Rng AND Units 05/19/2022 Protein, Total 6.3 - 8.0 g/dL 7.3 Albumin 3.9 - 4.9 g/dL 4.5 Calcium 8.5 - 10.2 mg/dL 9.4 Bilirubin, Total 0.2 - 1.3 mg/dL 0.9 Alkaline Phosphatase 38 - 113 U/L 62 AST 14 - 40 U/L 29 ALT 10 - 54 U/L 24 Glucose 74 - 99 mg/dL 103 (H) BUN 9 - 24 mg/dL 21 Creatinine 0.73 - 1.22 mg/dL 0.93 Sodium 136 - 144 mmol/L 142 Potassium 3.7 - 5.1 mmol/L 3.4 (L) Chloride 97 - 105 mmol/L 103 CO2 22 - 30 mmol/L 29 Anion Gap 9 - 18 mmol/L 10 eGFR >=60 mL/min/1.73mA? 92 WBC 3.70 - 11.00 k/uL 6.04 RBC 4.20 - 6.00 m/uL 5.03 Hemoglobin 13.0 - 17.0 g/dL 15.4 Hematocrit 39.0 - 51.0 % 44.2 MCV 80.0 - 100.0 fL 87.9 MCH 26.0 - 34.0 pg 30.6 MCHC 30.5 - 36.0 g/dL 34.8 RDW-CV 11.5 - 15.0 % 12.7 Platel (more content not included)... [facility] 05-21-2022 History of Presen t illness Narrative Ambulatory Ear Lavage Pre-treatment: Warm water Treatment: Both ears Equipment and Irrigation solution and Volume used: Single use syringe with single use irrigation tip Return flow appearance: Brown Patient tolerated procedure: yes Post-treatment: Post Irrigation Post-treatment: Ear Canal/Tympanic membrane assessed by LIP Dr. Mari This note was created using [employer]. Subjective Patient presents with: Physical Garrett Dewey is a 66 year old male. He felt well and had no concerns, other than some hearing loss from wax buildup. His hypertension had been controlled. He was watching his diet. He had no follow up to the finding of obstructive sleep apnea. We reviewed his lab results. Review of Systems Constitutional: Negative. HENT: Negative for ear discharge and ear pain. Eyes: Negative. Respiratory: Negative. Cardiovascular: Negative. Gastrointestinal: Negative. Genitourinary: Positive for frequency. Negative for difficulty urinating and dysuria. Musculoskeletal: Negative. Skin: Negative. Neurological: Negative. Psychiatric/Behavioral: Negative. ACTIVE PROBLEM LIST Essential Hypertension, Benign Mixed Hyperlipidemia Squamous Cell Cancer of Lip Psa Elevation Bradycardia Gerd (Gastroesophageal Reflux Disease) Right Homonymous Hemianopsia Cerebellar Infarct (Hcc) Nocturia Emmanuel (Obstructive Sleep Apnea) PAST SURGICAL HISTORY Procedure Laterality Date APPENDECTOMY HX 1992 COLONOSCOPY FLX DX W/COLLJ SPEC WHEN PFRMD 04/09/2010 COLONOSCOPY FLX DX W/COLLJ SPEC WHEN PFRMD 07/23/2020 ESOPHAGOGASTRODUODENOSCOPY TRANSORAL DIAGNOSTIC 07/23/2020 MOHS MICROGRAPHIC H/N/H/F/G 1ST STAGE 5 BLOCKS 2016 Lip PROSTATE BIOPSY 01/12/2018 negative. SKIN BIOPSY HX TONSILLECTOMY HX TONSILLECTOMY PRIMARY/SECONDARY <AGE 14 1965 Tonsillectomy VASECTOMY UNI/BI SPX W/POSTOP SEMEN EXAMS 1989 VASECTOMY UNI/BI SPX W/POSTOP SEMEN EXAMS 2002 reversal FAMILY HISTORY Problem Relation Age of Onset Cancer Mother breast Hypertension Mother Lipids Mother other (Other) Father had a history of colitis - no longer does None Sister Skin Cancer Sister None Brother Social History Tobacco Use Smoking status: Former Types: Cigarettes Quit date: 03/15/1987 Years since quittin.2 Smokeless tobacco: Never Tobacco comments: 30 packs for lifetime Vaping Use Vaping Use: Never used Substance Use Topics Alcohol use: Yes Alcohol/week: 15.0 standard drinks Types: 6 Cans of Beer (12oz) per week Drug use: No Current Outpatient Medications Medication Sig omeprazole (PRILOSEC) 40 mg capsule Take 1 capsule by mouth once daily as needed (acid indigestion.). amLODIPine (NORVASC) 10 mg tablet Take 1 tablet by mouth once daily. atorvastatin (LIPITOR) 20 mg tablet Take 1 tablet by mouth daily at bedtime. For cholesterol lisinopril-hydroCHLOROthiazide (PRINZIDE,ZESTORETIC) 20-12.5 mg per tablet Take 2 tablets by mouth once daily. multivitamin ORAL Tab Take one(1) tablet daily. aspirin, enteric coated (ASPIRIN, ENTERIC COATED) 81 mg EC tablet Take 1 tablet by mouth once daily. No current facility-administered medications for this visit. Objective BP 142/88 (BP Site: Left Arm, BP Position: Sitting, BP Cuff Size: Large Adult) Pulse (!) 58 Resp 12 Wt 79.8 kg (176 lb) BMI 25.25 kg/m Physical Exam Constitutional: Appearance: Normal appearance. HENT: Head: Normocephalic. Right Ear: External ear normal. There is impacted cerumen. Left Ear: External ear normal. There is impacted cerumen. Mouth/Throat: Pharynx: Oropharynx is clear. Eyes: General: No scleral icterus. Extraocular Movements: Extraocular movements intact. Conjunctiva/sclera: Conjunctivae normal. Cardiovascular: Rate and Rhythm: Normal rate and regular rhythm. Heart sounds: No murmur heard. No gallop. Pulmonary: Effort: Pulmonary effort is normal. Breath sounds: Normal breath sounds. Abdominal: Palpations: Abdomen is soft. Tenderness: There is no abdominal tenderness. Musculoskeletal: General: No swelling, tenderness or deformity. Normal range of motion. Right lower leg: No edema. Left lower leg: No edema. Lymphadenopathy: Cervical: No cervical adenopathy. Neurological: General: No focal deficit present. Mental Status: He is alert. Gait: Gait normal. Psychiatric: Mood and Affect: Mood normal. Component Latest Ref Rng & Units 05/19/2022 Protein, Total 6.3 - 8.0 g/dL 7.3 Albumin 3.9 - 4.9 g/dL 4.5 Calcium 8.5 - 10.2 mg/dL 9.4 Bilirubin, Total 0.2 - 1.3 mg/dL 0.9 Alkaline Phosphatase 38 - 113 U/L 62 AST 14 - 40 U/L 29 ALT 10 - 54 U/L 24 Glucose 74 - 99 mg/dL 103 (H) BUN 9 - 24 mg/dL 21 Creatinine 0.73 - 1.22 mg/dL 0.93 Sodium 136 - 144 mmol/L 142 Potassium 3.7 - 5.1 mmol/L 3.4 (L) Chloride 97 - 105 mmol/L 103 CO2 22 - 30 mmol/L 29 Anion Gap 9 - 18 mmol/L 10 eGFR >=60 mL/min/1.73m 92 WBC 3.70 - 11.00 k/uL 6.04 RBC 4.20 - 6.00 m/uL 5.03 Hemoglobin 13.0 - 17.0 g/dL 15.4 Hematocrit 39.0 - 51.0 % 44.2 MCV 80.0 - 100.0 fL 87.9 MCH 26.0 - 34.0 pg 30.6 MCHC 30.5 - 36.0 g/dL 34.8 RDW-CV 11.5 - 15.0 % 12.7 Platelet Count 150 - 400 k/uL 261 MPV 9.0 - 12.7 fL 10.6 Absolute nRBC <0.01 k/uL <0.01 Cholesterol, Total <200 mg/dL 163 Triglyceride <150 mg/dL 46 HDL Cholesterol >39 mg/dL 66 Non HDL Cholesterol <130 mg/dL 97 Fasting Time hrs 12 VLDL Cholesterol <30 mg/dL 9 TC:HDL Ratio <5.10 2.47 LDL Cholesterol <100 mg/dL 88 LDL:HDL Ratio <2.54 1.33 PSA <2.60 ng/mL 14.26 (H) Assessment and Plan ASSESSMENT/PLAN: 1. Routine medical exam - ICD9: V70.0, ICD10: Z00.00 (primary diagnosis) - Counseled on healthy diet and regular exercise - Counseled on limiting alcohol intake to 2 drinks per day - Depression screening tool completed and reviewed with patient. Based on score and interview, patient is not at risk for depression and recommended no further intervention at this time. 2. Mixed hyperlipidemia - ICD9: 272.2, ICD10: E78.2 - good control - Continue current medication. - ATORVASTATIN 20 MG TABLET - BASIC METABOLIC PNL - HGB A1C - LIPID PANEL BASIC 3. Essential hypertension, benign - ICD9: 401.1, ICD10: I10 - fair control - Continue current medication(s) - Recheck in 6 weeks, sooner should new symptoms or problems arise. - Reviewed risks of HTN and principles of treatment - Goal of BP <130/80 - LISINOPRIL 20 MG-HYDROCHLOROTHIAZIDE 12.5 MG TABLET 4. PSA elevation - ICD9: 790.93, ICD10: R97.20 Shared medical decision making done and we agreed to monitor and recheck in 6 months. - URINALYSIS, WITH MICROSCOPIC - PSA/PROSTSPECAG DIAG 5. EMMANUEL (obstructive sleep apnea) - ICD9: 327.23, ICD10: G47.33 Not yet addressed. Shared medical decision making done, and with history of CVA, he agreed to referral. - CONSULT TO SLEEP MEDICINE - ADULT 6. Bilateral impacted cerumen - ICD9: 380.4, ICD10: H61.23 Repeat inspection showed TM within normal bilaterally, and cerumen impaction resolved. Patient tolerated this well. - AMBULATORY EAR LAVAGE/IRRIGATION Dillan Mari MD documented in this encounter [facility] 03-09-2023 Instructions Dillan Mari MD - 05/21/2022 10:34 AM EST Recombinant shingles vaccine (Shingrix) is recommended; 2 doses 2-6 months apart. Please read information, check with your insurance, and schedule vaccination at your local pharmacy. A prescription is not required. If you are certain you have coverage to receive this vaccine in the office, we can schedule this for you. documented in this encounter [facility] 02-20-2022 Note HNO ID: [id number] Author: Dillan Mari MD Service: ? Author Type: Physician Type: Progress Notes Filed: 02/20/2022 11:22 AM Note Text: This note was created using [email or web address]. Subjective Garrett Dewey is a 66 year old male. He felt well. He had no symptoms of low blood pressure. ACTIVE PROBLEM LIST Essential Hypertension, Benign Mixed Hyperlipidemia Squamous Cell Cancer of Lip Psa Elevation Bradycardia Gerd (Gastroesophageal Reflux Disease) Right Homonymous Hemianopsia Cerebellar Infarct (Hcc) Nocturia Emmanuel (Obstructive Sleep Apnea) Current Outpatient Medications Medication Sig aspirin, enteric coated (ASPIRIN, ENTERIC COATED) 81 mg EC tablet Take 1 tablet by mouth once daily. omeprazole (PRILOSEC) 40 mg capsule Take 1 capsule by mouth once daily as needed (acid indigestion.). amLODIPine (NORVASC) 10 mg tablet Take 1 tablet by mouth once daily. atorvastatin (LIPITOR) 20 mg tablet Take 1 tablet by mouth daily at bedtime. For cholesterol lisinopril-hydroCHLOROthiazide (PRINZIDE,ZESTORETIC) 20-12.5 mg per tablet Take 2 tablets by mouth once daily. multivitamin ORAL Tab Take one(1) tablet daily. No current facility-administered medications for this visit. Review of Systems Constitutional: Negative. Respiratory: Negative. Cardiovascular: Negative. Neurological: Negative. Objective BP 110/68 (BP Site: Left Arm, BP Position: Sitting, BP Cuff Size: Large Adult) Pulse (!) 59 Temp 36.3 ?C (97.3 ?F) Resp 12 Ht 177.8 cm (5' 10 ) Wt 79.4 kg (175 lb) SpO2 96% BMI 25.11 kg/m? Physical Exam Constitutional: Appearance: Normal appearance. Cardiovascular: Rate and Rhythm: Regular rhythm. Bradycardia present. Heart sounds: No murmur heard. No gallop. Pulmonary: Breath sounds: Normal breath sounds. Musculoskeletal: Right lower leg: No edema. Left lower leg: No edema. Neurological: Gait: Gait normal. Assessment and Plan 1. Essential hypertension, benign - ICD9: 401.1, ICD10: I10 (primary diagnosis) - good control - CBC 2. Need for influenza vaccination - ICD9: V04.81, ICD10: Z23 - INFLUENZA VACCINE QUADRIVALENT 6 MO - 64 YRS IM 3. Mixed hyperlipidemia - ICD9: 272.2, ICD10: E78.2 - to be determined upon return of lab results - COMP METABOLIC PANEL - LIPID PANEL BASIC 4. Need for COVID-19 vaccine - ICD9: V04.89, ICD10: Z23 - PFIZER-BIONTECH COVID-19 BIVALENT BOOSTER VACCINE, AGE 12+ YR 5. PSA elevation - ICD9: 790.93, ICD10: R97.20 - PSA/PROSTSPECAG DIAG Dillan Mari MD [facility] 02-20-2022 History of Presen t illness Narrative This note was created using [employer]. Subjective Garrett Dewey is a 66 year old male. He felt well. He had no symptoms of low blood pressure. ACTIVE PROBLEM LIST Essential Hypertension, Benign Mixed Hyperlipidemia Squamous Cell Cancer of Lip Psa Elevation Bradycardia Gerd (Gastroesophageal Reflux Disease) Right Homonymous Hemianopsia Cerebellar Infarct (Hcc) Nocturia Emmanuel (Obstructive Sleep Apnea) Current Outpatient Medications Medication Sig aspirin, enteric coated (ASPIRIN, ENTERIC COATED) 81 mg EC tablet Take 1 tablet by mouth once daily. omeprazole (PRILOSEC) 40 mg capsule Take 1 capsule by mouth once daily as needed (acid indigestion.). amLODIPine (NORVASC) 10 mg tablet Take 1 tablet by mouth once daily. atorvastatin (LIPITOR) 20 mg tablet Take 1 tablet by mouth daily at bedtime. For cholesterol lisinopril-hydroCHLOROthiazide (PRINZIDE,ZESTORETIC) 20-12.5 mg per tablet Take 2 tablets by mouth once daily. multivitamin ORAL Tab Take one(1) tablet daily. No current facility-administered medications for this visit. Review of Systems Constitutional: Negative. Respiratory: Negative. Cardiovascular: Negative. Neurological: Negative. Objective BP 110/68 (BP Site: Left Arm, BP Position: Sitting, BP Cuff Size: Large Adult) Pulse (!) 59 Temp 36.3 C (97.3 F) Resp 12 Ht 177.8 cm (5' 10 ) Wt 79.4 kg (175 lb) SpO2 96% BMI 25.11 kg/m Physical Exam Constitutional: Appearance: Normal appearance. Cardiovascular: Rate and Rhythm: Regular rhythm. Bradycardia present. Heart sounds: No murmur heard. No gallop. Pulmonary: Breath sounds: Normal breath sounds. Musculoskeletal: Right lower leg: No edema. Left lower leg: No edema. Neurological: Gait: Gait normal. Assessment and Plan 1. Essential hypertension, benign - ICD9: 401.1, ICD10: I10 (primary diagnosis) - good control - CBC 2. Need for influenza vaccination - ICD9: V04.81, ICD10: Z23 - INFLUENZA VACCINE QUADRIVALENT 6 MO - 64 YRS IM 3. Mixed hyperlipidemia - ICD9: 272.2, ICD10: E78.2 - to be determined upon return of lab results - COMP METABOLIC PANEL - LIPID PANEL BASIC 4. Need for COVID-19 vaccine - ICD9: V04.89, ICD10: Z23 - PFIZER-BIONTECH COVID-19 BIVALENT BOOSTER VACCINE, AGE 12+ YR 5. PSA elevation - ICD9: 790.93, ICD10: R97.20 - PSA/PROSTSPECAG DIAG Dillan Mari MD documented in this encounter [facility] 06-19-2021 Miscellaneous Notes No answer. Left providers message and ask to call with any questions or concerns. Please let him know that right upper quadrant ultrasound showed no concerning findings. Also no liver cyst is noted on the ultrasound. documented in this encounter [facility] 06-18-2021 History of Presen t illness Narrative Radiology Service Progress Note PATIENT NAME: Garrett Dewey DATE OF SERVICE: June 18, 2021 TIME: 8:23 AM PATIENT IDENTITY VERIFICATION COMPLETED USING TWO (2) IDENTIFIERS: Name and Date of confirmed by patient verbally. FALL SCREENING: Has the patient had 2 falls in the last year or 1 fall with injury or currently using an Ambulatory Assistive Device (Walker, Cane, Wheelchair, Crutches, etc.)? No PATIENT GENDER DATA: Male PATIENT RELEVANT IMPLANT DATA REVIEWED: Yes RADIOLOGY DEPARTMENT: MR; Exam(s) Completed: Head: Routine Brain PERIPHERAL IV DATA: Not applicable SIGNED BY: RT Carlos(R) June 18, 2021 8:23 AM documented in this encounter [facility] documented as of this encounter (statuses as of 02/20/2022) [facility] History of Past illness Narrative* Problem Noted Date Resolved Date Lesion of liver greater than 1 cm in diameter 2021 Overview: Incidental finding on echo. Shortness of breath 02/18/2021 2021 Positive colorectal cancer screening using Colog uard test 07/23/2020 02/17/2021 Anxiety state, unspecified 01/17/200708/31 Overview: Restarted Zoloft in 10-19: financial (bankruptcy) and social stressors (broke up with 3 yr girlfriend) Financial issue to be clarified in 02-18 Wants to consider getting off Zoloft as of 04-22 Chronic rhinitis 07/30/2005 08/31/2017 documented as of this encounter (statuses as of 05/21/2022) [facility] History of Past illness Narrative* Problem Noted Date Diagnosed Date Resolved Date Lesion of liver greater than 1 cm in diameter 04/21/1908/19/2021 Overview: Incidental finding on echo. Shortness of breath 02/18/2021 08/20/19 Positive colorectal cancer s creening using Cologuard test 07/23/2020 02/17/2021 Anxiety state, unspecified 01/17/2007 0 08/31/2017 Overview: Restarted Zoloft in 10-19: financial (bankruptcy) and social stressors (broke up with 3 yr girlfriend) Financial issue to be clarified in 02-18 Wants to consider getting off Zoloft as of 2-08 Chronic rhinitis 07/30/2005 08/31/2017 documented as of this encounter (statuses as of 01/17/2023) [facility] History of Past illness Narrative* Problem Noted Date Resolved Date Positive colorectal cancer screening using Colog uard test 07/23/2020 02/17/2021 Anxiety state, unspecified 01/17/200708/31 Overview: Restarted Zoloft in 10-19: financial (bankruptcy) and social stressors (broke up with 3 yr girlfriend) Financial issue to be clarified in 02-18 Wants to consider getting off Zoloft as of 2-08 Chronic rhinitis 07/30/2005 08/31/2017 documented as of this encounter (statuses as of 06/15/2021) [facility] History of Past illness Narrative* Problem Noted Date Resolved Date Positive colorectal cancer screening using Colog uard test 07/23/2020 02/17/2021 Anxiety state, unspecified 01/17/200708/31 Overview: Restarted Zoloft in 10-19: financial (bankruptcy) and social stressors (broke up with 3 yr girlfriend) Financial issue to be clarified in 02-18 Wants to consider getting off Zoloft as of 2-08 Chronic rhinitis 07/30/2005 08/31/2017 documented as of this encounter (statuses as of 06/19/2021) [facility] History of Past illness Narrative* Problem Noted Date Resolved Date Positive colorectal cancer screening using Colog uard test 07/23/2020 02/17/2021 Anxiety state, unspecified 01/17/200708/31 Overview: Restarted Zoloft in 10-19: financial (bankruptcy) and social stressors (broke up with 3 yr girlfriend) Financial issue to be clarified in 02-18 Wants to consider getting off Zoloft as of 2-08 Chronic rhinitis 07/30/2005 08/31/2017 documented as of this encounter (statuses as of 06/19/2021) [facility] History of Past illness Narrative* Problem Noted Date Resolved Date Positive colorectal cancer screening using Colog uard test 07/23/2020 02/17/2021 Anxiety state, unspecified 01/17/200708/31 Overview: Restarted Zoloft in 10-19: financial (bankruptcy) and social stressors (broke up with 3 yr girlfriend) Financial issue to be clarified in 02-18 Wants to consider getting off Zoloft as of 2-08 Chronic rhinitis 07/30/2005 08/31/2017 documented as of this encounter (statuses as of 06/19/2021) [facility] Diagnosis Essential hypertension, benign Cerebellar infarct (HCC) Unspecified cerebral artery occlusion with cerebral infarction [facility] Liver cyst Other specified disorders of liver [facility] Diagnosis Essential hypertension, benign- Primary Need for influenza vaccination Need for prophylactic vaccination and inoculation against influenza Mixed hyperlipidemia Need for COVID-19 vaccine PSA elevation Elevated prostate specific antigen (PSA) [facility] Diagnosis Routine medical exam- Primary Routine general medical examination at a health care facility Mixed hyperlipidemia Essential hypertension, benign PSA elevation Elevated prostate specific antigen (PSA) EMMANUEL (obstructive sleep apnea) Obstructive sleep apnea (adult) (pediatric) Bilateral impacted cerumen Impacted cerumen [facility] Diagnosis Screening for abdominal aortic aneurysm Screening for other and unspecified cardiovascular conditions documented in this encounter [facility] for referral (narrative)* Diagnostic Procedure Only (Routine) - Closed Specialty Diagnoses / Procedures Referred By Roseann t Referred To Contact US IMAGING Diagnoses Liver cyst Procedures US ABD RT UPPER QUADRANT US ABDOMINAL REAL TIME W/IMAGE LIMITED Haley Briseno, 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 [address] [place] [address] Us Imaging Referral ID Status Reason Start Date Expiration Date V isits Requested Visits Authorized [id number] Closed Auto-Generate d Referral 05/16/2021 06/15/2022 1 1 [facility] for referral (narrative)* Diagnostic Procedure Only (Routine) - Authorized Specialty Diagnoses / Procedures Referred By Contac t Referred To Contact US IMAGING Diagnoses Screening for abdominal aortic aneurysm Procedures US SCREENING FOR AAA (2017) US ABDOMINAL AORTA REAL TIME SCREEN STUDY AAA Janet Srivastava APRN.PAINTING AND COATING WORKER [address] [place] [address] [place] [address] Referral ID Status Reason Start Date Expiration Date Visits Requested Visits Authorized [id number] Authorized Auto-Generat ed Referral 11/24/2022 01/22/2023 99 99 [facility] for visit Narrative* Diagnostic Procedure Only (Routine) - Closed Specialty Diagnoses / Procedures Referred By Contac t Referred To Contact US IMAGING Diagnoses Liver cyst Procedures US ABD RT UPPER QUADRANT US ABDOMINAL REAL TIME W/IMAGE LIMITED Haley Briseno 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 [address] [place] [address] Us Imaging Referral ID Status Reason Start Date Expiration Date V isits Requested Visits Authorized [id number] Closed Auto-Generate d Referral 05/16/2021 06/15/2022 1 1 [facility] Summary Purpose Family History No Family History Records FoundNo Family History Records FoundNo Family History Records FoundNo Family History Records Found Advance Directives Documents on File Type Date Recorded Patient Auto Cleaner Expl anation Advance Directive(s) 02/18/2021 1:45 PM Advance Directive(s) 07/23/2020 11:05 AM Advance Directive(s) 07/18/2020 11:17 AM Documents on File Type Date Recorded Patient Auto Cleaner Expl anation Advance Directive(s) 02/18/2021 1:45 PM Advance Directive(s) 07/23/2020 11:05 AM Advance Directive(s) 07/18/2020 11:17 AM Reason for Referral Specialty Diagnoses / Procedures Referred By Contac t Referred To Contact MR IMAGING Diagnoses Essential hypertension, benign Cerebellar infarct (HCC) Procedures MRI BRAIN WO IVCON MRI BRAIN WO CONTRAST Dillan Mari MD [address] [place] [address] Mr Imaging Referral ID Status Reason Start Date Expiration Date V isits Requested Visits Authorized [id number] Closed Auto-Generat ed Referral Patient Cleared - Admin/Chairm an/Director advise to proceed 06/16/2021 06/18/2021 1 1 Specialty Diagnoses / Procedures Referred By Contac t Referred To Contact Diagnoses EMMANUEL (obstructive sleep apnea) Procedures CONSULT TO SLEEP MEDICINE - ADULT OFFICE/OUTPATIENT [facility] 60-74 MINUTES Dillan Mari MD [address] [place] [address] Referral ID Status Reason Start Date Expiration Date Visits Requested Visits Authorized [id number] Authorized PCP Requested Referral 05/21/2022 05/21/2023 1 1 Additional Source Comments (unrecognized sect ion and content) No Status Records FoundNo Status Records FoundNo Status Records FoundNo Status Records Found INFORMATION SOURCE (unrecogn ized section and content) DATE CREATED AUTHOR AUTHOR'S ORGANIZ ATION 02/19/2018 [facility] DATE CREATED AUTHOR AUTHOR'S ORGANIZ ATION 02/19/2021 [facility] DATE CREATED AUTHOR AUTHOR'S ORGANIZ ATION 11/30/2022 [facility] Source Comments (unrecognize d section and content) In the event this informatio n is protected by the Federal Confidentiality of Alcohol and Drug Abuse Patient Records regulations: The Federal rules restrict any use of the information to criminally investigate or prosecute any alcohol or drug abuse patient.[facility] the event this information is protected by the Federal Confidentiality of Alcohol and Drug Abuse Patient Records regulations: The Federal rules restrict any use of the information to criminally investigate or prosecute any alcohol or drug abuse patient.[facility] Center[facility] the event this information is protected by the Federal Confidentiality of Alcohol and Drug Abuse Patient Records regulations: The Federal rules restrict any use of the information to criminally investigate or prosecute any alcohol or drug abuse patient.[facility] Center[facility] the event this information is protected by the Federal Confidentiality of Alcohol and Drug Abuse Patient Records regulations: The Federal rules restrict any use of the information to criminally investigate or prosecute any alcohol or drug abuse patient.[facility] Center[facility] the event this information is protected by the Federal Confidentiality of Alcohol and Drug Abuse Patient Records regulations: The Federal rules restrict any use of the information to criminally investigate or prosecute any alcohol or drug abuse patient.[facility] Center[facility] the event this information is protected by the [facility] Confidentiality of Alcohol and Drug Abuse Patient Records regulations: The Federal rules restrict any use of the information to criminally investigate or prosecute any alcohol or drug abuse patient.[facility] Center[facility] the event this information is protected by the Federal Confidentiality of Alcohol and Drug Abuse Patient Records regulations: The Federal rules restrict any use of the information to criminally investigate or prosecute any alcohol or drug abuse patient.[facility] Care Teams (unrecognized sec tion and content) Hand Salter Relationship Specialty Start Date End Date Dillan Mari MD [address], [place] [id number] PCP - General Internal Medicine 12/01/17 Hand Salter Relationship Specialty Start Date End Date Dillan Mari MD [address], [place] [id number] PCP - General Internal Medicine 12/01/17 Hand Salter Relationship Specialty Start Date End Date Dillan Mari MD [address], [place] [id number] PCP - General Internal Medicine 12/01/17 Hand Salter Relationship Specialty Start Date End Date Dillan Mari MD [address], [place] [id number] PCP - General Internal Medicine 12/01/17 Hand Salter Relationship Specialty Start Date End Date Dillan Mari MD [address], [place] [id number] PCP - General Internal Medicine 12/01/17 Hand Salter Relationship Specialty Start Date End Date Dillan Mari MD [address] [place] [address] PCP - General Internal Medicine 12/01/17 Reason for Visit (unrecogniz ed section and content) Referral ID Status Reason Start Date Expiration Date V isits Requested Visits Authorized [id number] Closed Auto-Generat ed Referral Patient Cleared - Admin/Chairm an/Director advise to proceed 06/16/2021 06/18/2021 1 1 Reason Comments Results RUQ US Reason Onset Date Comments F/U 6 months Immunizations 02/20/2022 Flu vaccination Reason Comments Physical Reason Comments Radiology US Specialty Diagnoses / Procedures Referred By Roseann mejía Referred To Contact US IMAGING Diagnoses Screening for abdominal aortic aneurysm Procedures US SCREENING FOR AAA (2017) US ABDOMINAL AORTA REAL TIME SCREEN STUDY AAA Older, LIANE Gonzales.[employer]ATING WORK[employer] [address] [place] [address] [facility] [place] [id number] Referral ID Status Reason Start Date Expiration Date Visits Requested Visits Authorized [id number] Authorized Auto-Generat ed Referral 11/24/2022 01/22/2023 99 99 FOR RECORDS PERTAINING TO PATIENTS WHO ARE OR HAVE BEEN ENROLLED IN A CHEMICAL DEPENDENCY/SUBSTANCEABUSE PROGRAM, SOME INFORMATION MAY BE OMITTED. This clinical summary was aggregated from multiple sources. Caution should be exercised in using it in the provision of clinical care. This summary normalizes information from multiple sources, and as a consequence, information in this document may materially change the coding, format and clinical context of patient data. In addition, data may be omitted in some cases. CLINICAL DECISIONS SHOULD BE BASED ON THE PRIMARY CLINICAL RECORDS. [employer] [facility]. provides no warranty or guarantee of the accuracy or completeness of information in this document.
[2023-04-13 11:25] VITALS: BP 142/97; PULSE 47; RESP 16; O2SAT 97
== END 2023-04-13 11:26 | disposition home or self-care (01) ==
PROVIDERS: Emergency Provider Emergency Medicine; PCP Internal Medicine; Visit Provider Emergency Medicine
DX: S20.212A Contusion of left front wall of thorax, initial encounter (principal); Z87.891 Personal history of nicotine dependence; Z86.73 Personal history of transient ischemic attack (TIA), and cerebral infarction without residual deficits; W01.198A Fall on same level from slipping, tripping and stumbling with subsequent striking against other object, initial encounter
CPT/HCPCS: 71101; 99282

== ENCOUNTER 2024-03-23 06:13 | Observation (INO) | payer MEDICARE, SELFPAY ==
[2024-03-23] VITALS (12 sets, daily range): BP systolic 136–193; BP diastolic 85–105; PULSE 52–60; RESP 14–18; TEMP 36.3–36.8; O2SAT 96–100; BMI 25.2; BMI 24.5
--- NOTE | 2024-03-23 06:18 | EKG12_ITS ---
Test Reason : poss stroke Blood Pressure : */* mmHG Vent. Rate : 56 BPM Atrial Rate : 56 BPM P-R Int : 178 ms QRS Dur : 94 ms QT Int : 446 ms P-R-T Axes : 7 35 12 degrees QTcB Int : 430 ms Sinus bradycardia Otherwise normal ECG Confirmed by Jonathan Mejía ([id number]), continuity editor PAT ESTRADA ([id number]) on 03/24/2024 9:33:37 AM Referred By: Confirmed By: Jonathan Mejía
--- NOTE | 2024-03-23 06:18 | CT_ITS ---
We are attempting to reach an attending provider to discuss findings. An addendum with communication details will be sent when the communication is complete. INDICATION: Neuro deficit, acute, stroke suspected EXAMINATION: CT BRAIN - CT Head Stroke Protocol W/O Contrast Injection TECHNIQUE: Multiple axial images were obtained of the head without intravenous contrast. A radiation dose optimization technique was used for this scan. IV Contrast dosage and agent: None. RADIATION DOSAGE (If Supplied By Facility): CTDIvol = ( 45 ) mGy, DLP = ( 796 ) mGycm COMPARISON: No relevant prior comparison study available FINDINGS: BRAIN PARENCHYMA: No intra- or extra-axial hemorrhage. No evidence of acute infarct. No intracranial mass or mass effect. There is preservation of the andrews/white matter interface. Posterior fossa structures are unremarkable. Left occipital small area of encephalomalacia. CSF SPACES: No cerebral volume loss. No hydrocephalus. Basal cisterns are patent. CALVARIUM, SKULL BASE, PARANASAL SINUSES AND MASTOID AIR CELLS: Mild mucoperiosteal thickening of the ethmoid air cells bilaterally. The mastoid air cells and visualized paranasal sinuses are otherwise well aerated. The calvarium is intact. No discrete lytic or blastic abnormalities. ORBITS: Both globes, extraocular muscles, optic nerves and retrobulbar fat appear unremarkable. CT/STROKE Brain/Head without Cont IMPRESSION: No acute intracranial finding. Small chronic left occipital lobe infarct. Electronically Signed: Berry Sarkar MD at 6:34 EST ,
--- NOTE | 2024-03-23 06:18 | CT_ITS ---
INDICATION: Neuro deficit, acute, stroke suspected EXAMINATION: CTA HEAD AND CTA NECK TECHNIQUE: Routine carotid CT angiogram protocol was performed without and with IV contrast. In addition, images were obtained of the [place] of [place]. NASCET criteria using the distal ICAs for comparison were used for evaluation of stenoses. 3D reconstructions were reviewed. The protocol utilizes one or more of the following dose reduction techniques: automated exposure control, adjustment of mA and/or kV according to patient size,and/or use of iterative reconstruction technique. IV Contrast dosage and agent: 100 mL [id number] COMPARISON: No relevant prior comparison study available FINDINGS: --CTA NECK: AORTIC ARCH AND BRANCHES: Normal anatomy, patent. RIGHT CCA: No occlusion, significant stenosis or dissection. RIGHT ICA: No occlusion, significant stenosis or dissection. LEFT CCA: No occlusion, significant stenosis or dissection. LEFT ICA: No occlusion, significant stenosis or dissection. RIGHT VERTEBRAL ARTERY: No occlusion, significant stenosis or dissection. LEFT VERTEBRAL ARTERY: No occlusion, significant stenosis or dissection. NECK SOFT TISSUES: Unremarkable. Mild degenerative changes of the cervical spine. --CTA HEAD: --Anterior circulation: ICAs: No significant stenosis at the intracranial/visualized segments. ACAs: No significant stenosis at the visualized segments. ACOM: Present. MCAs: No significant stenosis at the visualized segments. --Posterior circulation: PCOMs: Not visualized. industrial hire sales assistant: No significant stenosis at the visualized segments. BASILAR ARTERY: No significant stenosis. VERTEBRAL ARTERIES: No significant stenosis at the intradural/visualized segments. No evidence of intracranial aneurysm or vascular malformation. CT/STROKE CTA Head AND Neck W/Con IMPRESSION: No large vessel occlusion or flow-limiting stenosis. N.B. : The above Results were Read Back by Berry Sarkar MD to Jevon Corral DO, and understanding confirmed on 03/23/2024 07:09:03 (ET). Electronically Signed: Berry Sarkar MD at 7:08 EST ,
[2024-03-23 06:30] LABS: Absolute Lymphocyte Count 1.59 X10^3/uL (0.83-4.51); Basophil# 0.06 X10^3/uL; Basophil% 1.1 % (0-1); Eosinophil# 0.32 X10^3/uL; Eosinophils% 5.8 % (0-5); Hematocrit 43.4 % (40-54); Hemoglobin 15.2 g/dL (13.0-16.5); Lymphocyte # 1.59 X10^3/ul (0.83-4.51); Mean Corpuscular Hgb 30.6 pg (27.0-32.0); Mean Corpuscular Volume 87.3 fL (80-94); Mean Platelet Vol. 9.7 fl (6.2-12.0); Monocyte# 0.55 X10^3/uL; NRBC Flagged by Analyzer 0 % (0-5); Neutrophil # 2.95 X10^3/uL (2.7-7.7); Neutrophil % 53.9 % (47-70); Platelet Count 260 K/mm3 (150-450); RBC Distribution Width CV 12.6 % (11.6-14.6); RBC Distribution Width SD 40.1 fl (35.1-43.9); Red Blood Count 4.97 M/mm3 (4.6-6.2); White Blood Count 5.5 K/mm3 (4.4-11.0)
[2024-03-23 06:35] LABS: Bedside Glucose 93 mg/dL (74-106)
[2024-03-23 06:42] LABS: Prothrombin Time (Protime)PT. 13.2 SECONDS (11.7-14.9)
[2024-03-23 06:43] LABS: Partial Thromboplast Time 27.9 Seconds (24.1-36.2)
[2024-03-23 06:50] LABS: Anion Gap 5 (5-15); BUN 19 mg/dL (7-18); BUN/Creat Ratio 17.6 RATIO (10-20); Calcium,Total 8.9 mg/dL (8.5-10.1); Chloride 104 mmol/L (98-107); Creatinine, Serum 1.08 mg/dL (0.70-1.30); EST Glomerular Filtration Rate 73 mL/min (>60); Est Glom Filt Rate - Afr Amer 88 mL/min (>60); Estimated Creatinine Clearance 69.47 ml/min; Glucose 103 mg/dL (74-106); Potassium 3.5 mmol/L (3.5-5.1); Sodium Level 139 mmol/L (136-145)
[2024-03-23] MEDS: hydrALAZINE 20 MG/ML Vial 10 MG IV (06:51)
--- NOTE | 2024-03-23 07:45 | RAD_ITS ---
HISTORY: Neuro deficit, acute, stroke suspected. TECHNIQUE: XR Chest 1 View. COMPARISON: 04/13/2023. FINDINGS: CARDIOMEDIASTINAL BORDERS: Cardiac silhouette within normal limits in size. Mediastinal contour unremarkable. LUNGS: Radiographically clear. PLEURA: No pleural effusion or pneumothorax seen. OSSEOUS STRUCTURES: Unremarkable. RAD/Chest 1 View IMPRESSION: No acute cardiopulmonary process identified. Electronically Signed: Anne Marie Caballero MD at 8:20 EST ,
--- NOTE | 2024-03-23 07:45 | EX.ED.DYSGE1 ---
HPI History of Present Illness Chief Complaint: Neuro S/Sx Informant: patient and spouse/S.O. Narrative Narrative: Patient is a 68-year-old male with past medical history of hypertension hyperlipidemia and previous TIA. Despite this he is not on anticoagulation. He states he ran out of aspirin roughly a month ago and has not even been on a baby aspirin. He states he went to bed normally and woke at 2 AM to use the restroom and felt normal. He states he woke around 415 and felt like he had a left sided numbness and mild weakness. Symptoms were not improving so therefore with concern for TIA versus stroke he presents to the hospital for evaluation. [facility] Medical History HLD (hyperlipidemia) HTN (hypertension) TIA (transient ischemic attack) Home Medications ?Medication ?Instructions ?Recorded ?Last Taken ?Type albuterol sulfate 90 mcg/actuation 2 puff inhalation Q4H PRN PRN 12/06/19 Unknown Rx aerosol inhaler Wheezing ##1 hydrocodone-acetaminophen 5-325mg 1 tab PO Q6H PRN PRN Pain 3 days 04/13/23 Unknown Rx 5mg-325mg #12 TABLETS amlodipine 10 mg tablet 10 mg PO DAILY 03/23/24 Unknown History atorvastatin .ROUTE 03/23/24 Unknown History lisinopril 20 2 tab PO DAILY 03/23/24 Unknown History mg-hydrochlorothiazide 12.5 mg tablet potassium chloride 8 mEq 8 meq PO 03/23/24 Unknown History capsule,extended release Allergy/AdvReac Type Severity Reaction Status Date / Time No Known Allergies Allergy Verified 03/23/24 06:24 Surgical History (Updated 04/13/23 @ 10:09 by Kathy Epstein) Hx of appendectomy Hx of tonsillectomy Social History Smoking Status: Former smoker ROS ROS ED Constitutional Constitutional ED: Denies chills or fever(s) Eyes Eyes: Denies blurry vision or change in vision ENT ENT ED: Denies sore throat Cardiovascular Cardiovascular: Denies chest pain, palpitations or racing heartbeat Respiratory/Chest Respiratory/Chest: Denies cough or dyspnea Gastrointestinal Gastrointestinal: Denies abdominal pain, diarrhea, nausea or vomiting Genitourinary Genitourinary ED: Denies dysuria Musculoskeletal Musculoskeletal: Denies myalgias Integumentary Denies rash Neurologic Neurologic: Reports paresthesias and weakness; Denies headache(s) Hematologic/Lymphatic Hematologic/Lymphatic: Denies easy bleeding or easy bruising EXAM Physical Exam Const Vital Signs: 03/23/24 06:13 03/23/24 06:13 03/23/24 06:18 Temperature 98.1 F Temperature Source Oral Pulse Rate 60 60 Respiratory Rate 15 16 Blood Pressure 174/104 H 174/104 H Blood Pressure Mean 127 127 Pulse Ox 98 98 99 Oxygen Delivery Method Room Air Room Air Room Air 03/23/24 06:18 03/23/24 06:48 03/23/24 07:13 Temperature Temperature Source Pulse Rate 59 L 54 L 56 L Respiratory Rate 18 17 16 Blood Pressure 193/105 H 175/102 H 158/98 H Blood Pressure Mean 134 126 118 Pulse Ox 98 98 98 Oxygen Delivery Method Room Air Room Air Room Air 03/23/24 07:18 03/23/24 07:30 Temperature Temperature Source Pulse Rate 59 L 60 Respiratory Rate 16 16 Blood Pressure 158/98 H 151/96 H Blood Pressure Mean 118 114 Pulse Ox 98 98 Oxygen Delivery Method Room Air Room Air Positive well nourished and well developed General Appearance ED: well developed; Negative for pallor HEENT Reports moist mucous membranes HEENT Narrative: Normocephalic atraumatic Eyes PERRL and EOMs intact bilaterally General Eye ED: Negative for scleral icterus Neck supple Neck Narrative: No nuchal rigidity or meningeal signs Resp normal respiratory effort and clear to auscultation bilaterally Cardio regular rate and regular rhythm Rate: other Other Details: Heart is regular rate and rhythm Radial and carotid pulses are equal and symmetric GI normal to inspection, nondistended, normoactive bowel sounds, non-tender, non-distended and no masses Auscultation: normoactive bowel sounds Palpation: soft Extremity normal to inspection Extremity Narrative: No asymmetric edema no pitting edema negative Homans' sign bilaterally Neuro oriented x3 Neuro Narrative: GCS of 15 Patient received NIH stroke scale score of 1 secondary to paresthesias in the left upper arm. Otherwise cranial nerves II through XII are grossly intact No focal weakness noted No pronator drift no dysmetria no truncal ataxia Sensorium / Orientation: alert Motor Exam: strength 5/5 throughout Psych mental status grossly normal Skin no rashes or lesions noted General Skin Exam: Negative for jaundice or pallor MDM MDM MDM Narrative Medical decision making narrative: Patient arrived to the ER hypertensive otherwise with stable vitals. Last known well was 2 AM as he awoke around 415 with his symptoms. Based on his known history of TIAs and paresthesias a stroke alert was activated. Patient CT revealed no signs of hemorrhagic stroke and CTA revealed no LVO. The patient was evaluated by [facility] neurology and they agree that based on his low stroke scale score and the fact he is outside the 4-hour window there is no need for TNK. However they do recommend that based on his risk factors and symptoms that he be admitted to this facility for MRI and further stroke workup. This plan of care was discussed with the patient and family and they are agreeable to it. Secondary to this the case was discussed with the hospitalist who agrees to accept the patient for continued care History & Record Review Discussion w/independent historian: Patient and Significant other Lab Data Attestation: I reviewed the patient's lab results. Labs: Laboratory Results - last 24 hr 03/23/24 03/23/24 06:15 06:23 WBC 5.5 RBC 4.97 Hgb 15.2 Hct 43.4 MCV 87.3 MCH 30.6 MCHC 35.0 RDW Std Deviation 40.1 RDW Coeff of Shayne 12.6 Plt Count 260 MPV 9.7 Immature Gran % (Auto) 0.200 Neut % (Auto) 53.9 Lymph % (Auto) 29.0 [place] % (Auto) 10.0 Eos % (Auto) 5.8 H Baso % (Auto) 1.1 H Absolute Neuts (auto) 3.0 Absolute Lymphs (auto) 1.59 Nucleated RBC % 0 PT 13.2 INR 1.0 APTT 27.9 Sodium 139 Potassium 3.5 Chloride 104 Carbon Dioxide 30.0 Anion Gap 5 BUN 19 H Creatinine 1.08 Estim Creat Clear Calc 69.47 Est GFR (MDRD) Af Amer 88 Est GFR (MDRD) Non-Af 73 BUN/Creatinine Ratio 17.6 Glucose 103 Calcium 8.9 POC Glucose 93 Radiography Diagnostic Testing: Clinical Impression(s) from Imaging Studies Brain CT 03/23/24 06:18 IMPRESSION: No acute intracranial finding. Small chronic left occipital lobe infarct. Electronically Signed: Berry Sarkar MD at 6:34 EST , ADDENDUM: 03/23/24 0652 IMPRESSION: No acute intracranial finding. Small chronic left occipital lobe infarct. N.B. : The above Results were Read Back by Berry Sarkar MD to Bea Boudreaux RN, and understanding confirmed on 03/23/2024 06:45:52 (ET). Electronically Signed: Berry Sarkar MD at 6:34 EST , Head/Neck CTA 03/23/24 06:18 IMPRESSION: No large vessel occlusion or flow-limiting stenosis. N.B. : The above Results were Read Back by Berry Sarkar MD to Jevon Corral DO, and understanding confirmed on 03/23/2024 07:09:03 (ET). Electronically Signed: Berry Sarkar MD at 7:08 EST , Chest x-ray as interpreted by the emergency medicine physician reveals no acute infiltrate pneumothorax or pleural effusion Management Discussion w/another healthcare provider: Hospitalist and Workforce Development Assistant Discharge Plan Triage Chief Complaint: Neuro S/Sx ED Provider: Jevon Corral Dx/Rx/DC Orders Clinical Impression: Paresthesia, Hypertension, Hyperlipidemia Prescriptions: No Action albuterol sulfate 1 INHALER inhaler 2 puff inhalation Q4H PRN PRN (Reason: Wheezing) Qty: 1 0RF Rx Instructions: dispense with Spacer hydrocodone-acetaminophen [hydrocodone-acetaminophen] 5-325 mg tablet 1 tab PO Q6H PRN PRN (Reason: Pain) 3 Days Qty: 12 0RF lisinopril-hydrochlorothiazide 20-12.5 mg tablet 2 tab PO DAILY atorvastatin .ROUTE potassium chloride 8 mEq capsule, extended release 8 meq PO amlodipine 10 mg tablet 10 mg PO DAILY Primary Care Provider: Dillan Abel Referrals: Dillan Abel MD [Primary Care Provider] - Print Language: Slovak Disposition Disposition: Acute Care Hospital [facility]
--- NOTE | 2024-03-23 07:50 | HP.PCM.HOS_ITS ---
HPI - General General Date of Admission: 03/23/24 Date of Service: 03/23/24 Chief Complaint: Left upper extremity numbness and subjective with HPI Narrative OSCAR MAHER, is a 68 M with past medical history single for essential hypertension, previous TIAs who presented with left upper extremity numbness and weakness. Per patient he woke up around 4 AM on the morning of his admission did experience subjective weakness involving the left upper extremity. He also did experience severe numbness as well as numbness involving the left lower extremity. He decided to present to the emergency department in view of the persistence of his symptoms. Patient denied any gait disturbance no slurred speech. Patient symptoms were improving at the time of arrival in the ED. Initial imaging studies came back unremarkable. Admitted to monitored bed for subsequent inpatient workup [facility] Medical History (Updated 03/23/24 @ 08:[address] Kennedy Gallagher MD) HLD (hyperlipidemia) HTN (hypertension) TIA (transient ischemic attack) Home Medications ?Medication ?Instructions ?Recorded ?Last Taken ?Type albuterol sulfate 90 mcg/actuation 2 puff inhalation Q4H PRN PRN 12/06/19 Unknown Rx aerosol inhaler Wheezing ##1 hydrocodone-acetaminophen 5-325mg 1 tab PO Q6H PRN PRN Pain 3 days 04/13/23 Unknown Rx 5mg-325mg #12 TABLETS amlodipine 10 mg tablet 10 mg PO DAILY 03/23/24 Unknown History atorvastatin .ROUTE 03/23/24 Unknown History lisinopril 20 2 tab PO DAILY 03/23/24 Unknown History mg-hydrochlorothiazide 12.5 mg tablet potassium chloride 8 mEq 8 meq PO 03/23/24 Unknown History capsule,extended release Allergy/AdvReac Type Severity Reaction Status Date / Time No Known Allergies Allergy Verified 03/23/24 06:24 Surgical History (Updated 04/13/23 @ 10:09 by Kathy Epstein) Hx of appendectomy Hx of tonsillectomy Social History Smoking Status: Former smoker ROS ROS Narrative GENERAL: denies fever, chills, night sweats, weight loss, anorexia HEENT: denies headache, sinus congestion, or drainage, dysphagia RESPIRATORY: denies cough, sputum production, shortness of breath, dyspnea on exertion CARDIAC: denies chest pain, palpitations, orthopnea, PND GASTROINTESTINAL: denies abdominal pain, nausea, vomiting, melena, GENITOURINARY: denies dysuria, urgency, frequency, heamaturia EXTREMITY: denies swelling MUSCULOSKELETAL: denies current joint pain or tenderness NEUROLOGIC: focal numbness, weakness, tingling HEMATOLOGIC: denies easy bruising and/or hemorrhage INTEGUMENT: denies rashes PSYCHIATRIC: denies suicidal or homicidal ideation Vital Signs Vital Signs Vital Signs: 03/23/24 06:13 03/23/24 06:13 03/23/24 06:18 Temperature 98.1 F Temperature Source Oral Pulse Rate 60 60 Respiratory Rate 15 16 Blood Pressure 174/104 H 174/104 H Blood Pressure Mean 127 127 Pulse Ox 98 98 99 Oxygen Delivery Method Room Air Room Air Room Air 03/23/24 06:18 03/23/24 06:48 03/23/24 07:13 Temperature Temperature Source Pulse Rate 59 L 54 L 56 L Respiratory Rate 18 17 16 Blood Pressure 193/105 H 175/102 H 158/98 H Blood Pressure Mean 134 126 118 Pulse Ox 98 98 98 Oxygen Delivery Method Room Air Room Air Room Air 03/23/24 07:18 03/23/24 07:30 Temperature Temperature Source Pulse Rate 59 L 60 Respiratory Rate 16 16 Blood Pressure 158/98 H 151/96 H Blood Pressure Mean 118 114 Pulse Ox 98 98 Oxygen Delivery Method Room Air Room Air Weight Weight: 79.8 kg Body Mass Index (BMI) 25.2 Physical Exam Narrative GENERAL: cooperative HEENT: Atraumatic; normocephalic EYES; Anicteric, Normal Conjunctiva NECK; supple, normal thyroid, RESPIRATORY: Diminished to auscultation CARDIOVASCULAR: Regular S1 S2, GI: soft, normoactive bowel sounds, : No Renal angle tenderness; EXTREMITIES: No edema, no clubbing, MUSCULOSKELETAL: no muscle wasting NEURO: Awake; no lateralizing signs. SKIN: No Rash PSYCH; Flat affect Results Lab / Micro Data 03/23/24 06:23 03/23/24 06:23 Labs: Laboratory Results - last 24 hr 03/23/24 06:15: POC Glucose 93 03/23/24 06:23: WBC 5.5, RBC 4.97, Hgb 15.2, Hct 43.4, MCV 87.3, MCH 30.6, MCHC 35.0, RDW Std Deviation 40.1, RDW Coeff of Shayne 12.6, Plt Count 260, MPV 9.7, Immature Gran % (Auto) 0.200, Neut % (Auto) 53.9, Lymph % (Auto) 29.0, [place] % (Auto) 10.0, Eos % (Auto) 5.8 H, Baso % (Auto) 1.1 H, Absolute Neuts (auto) 3.0, Absolute Lymphs (auto) 1.59, Nucleated RBC % 0, PT 13.2, INR 1.0, APTT 27.9, Sodium 139, Potassium 3.5, Chloride 104, Carbon Dioxide 30.0, Anion Gap 5, BUN 19 H, Creatinine 1.08, Estim Creat Clear Calc 69.47, Est GFR (MDRD) Af Amer 88, Est GFR (MDRD) Non-Af 73, BUN/Creatinine Ratio 17.6, Glucose 103, Calcium 8.9 Imaging Radiology Impression Brain CT 03/23/24 06:18 IMPRESSION: No acute intracranial finding. Small chronic left occipital lobe infarct. Electronically Signed: Berry Sarkar MD at 6:34 EST , ADDENDUM: 03/23/24 0652 IMPRESSION: No acute intracranial finding. Small chronic left occipital lobe infarct. N.B. : The above Results were Read Back by Berry Sarkar MD to Bea Boudreaux RN, and understanding confirmed on 03/23/2024 06:45:52 (ET). Electronically Signed: Berry Sarkar MD at 6:34 EST , Head/Neck CTA 03/23/24 06:18 IMPRESSION: No large vessel occlusion or flow-limiting stenosis. N.B. : The above Results were Read Back by Berry Sarkar MD to Jevon Corral DO, and understanding confirmed on 03/23/2024 07:09:03 (ET). Electronically Signed: Berry Sarkar MD at 7:08 EST , Assessment & Plan Assessment/Plan (1) Hypertension: (2) Hyperlipidemia: (3) TIA (transient ischemic attack): (4) Paresthesia: PLAN: Plan Patient is a 68-year-old gentleman presenting with subjective weakness involving the left upper extremity with numbness on the left side. Admitted to a monitored bed for subsequent management 1. Left-sided paresthesias ? Patient has been admitted to monitored bed currently being worked up as a case of suspected TIA given his improving symptoms. As part of his management ordered MRI of the brain as well as MRI of the cervical spine patient was started on antiplatelet therapy with aspirin atorvastatin and also did order 2D echo. CTA of the head and neck obtained in the ED came back unremarkable consult was placed to [facility] 2. Hypertension ? Blood pressure controlled, home medications continued with dose adjustment as needed 3. Dyslipidemia ? Per history currently not on any medication patient was started on atorvastatin 4. Chronic alcohol use counseled on cessation 5. History of previous tobacco dependence ? Patient is in remission continued cessation encouraged 6. DVT prophylaxis ? On enoxaparin Time spent in the patient's overall evaluation,decision-making process, review of diagnostic data, adjustment of management, discussion with other providers, nursing nursing and ancillary staff involved in patient's care documentation, 75 Minutes Advance planning; did discuss with the patient and family regarding advanced directives as well as CODE STATUS. Did explain the various scenarios involved ( FULL CODE, DNR CCA, DNR CCA with no intubation, and DNR CC and what each meant) patient elected to to remain full code with CPR intubation if needed. Order was placed. Time spent on discussion 16 minutes. Charges/Coding Multi Select Codes Visit Charges Visit Charges: 58611 Init Hosp L3 Hospitalists' Procedures Procedures: 94684 Advncd Care Plan 30 Min
[2024-03-23] MEDS: Aspirin 325 MG Tablet PO (08:05)
--- NOTE | 2024-03-23 08:06 | MRI_ITS ---
ACR Level 3 findings have been noted. An addendum which confirms receipt of the report will follow. HISTORY: TIA. TECHNIQUE: Multiplanar and multisequence MR images of the brain were obtained without contrast. 296 images. COMPARISON: CT same day. FINDINGS: BRAIN PARENCHYMA: Small zone of restricted diffusion in the right parietal cortex. Chronic mild left occipital infarct. Mild foci of increased T2 FLAIR signal in the bilateral cerebral white matter. No acute intracranial hemorrhage identified. CSF SPACES: Cerebral ventricles, cortical sulci, and other extra-axial CSF spaces within normal limits in size for age. No significant midline shift or other mass effect.No extra-axial fluid collection. VASCULAR SYSTEM: Major intracranial flow voids are maintained. PARANASAL SINUSES AND MASTOID AIR CELLS: Mucosal thickening of the ethmoid air cells. ORBITS: Symmetric contents. MRI/Brain without Contrast IMPRESSION: Small acute right parietal infarct. Chronic small left occipital infarct. Mild chronic white matter changes. Electronically Signed: Anne Marie Caballero MD at 10:59 EST ,
--- NOTE | 2024-03-23 08:06 | ECHOD_ITS ---
Reason For Study: TIA/STROKE Procedure This was a 2D Doppler, Color Flow transthoracic echocardiogram. Exam performed portable in patient room. Left Ventricle Normal LV size. The estimated ejection fraction is 65 %. No evidence for diastolic dysfunction. No regional wall motion abnormalities noted. Right Ventricle Normal RV size. Normal systolic function. Atria The left and right atria are normal. No doppler evidence for ASD. Mitral Valve There is no mitral valve stenosis. No mitral valve insufficiency. Tricuspid Valve There is no tricuspid stenosis. Trivial tricuspid valve insufficiency. Pulmonary artery systolic pressure is 30 mmHg. Aortic Valve Trisinus/trileaflet aortic valve. There is no aortic stenosis. No aortic valve insufficiency. Pulmonic Valve There is no pulmonic valvular stenosis. No pulmonic valve insufficiency. Great Vessels Normal aortic root. Pericardium/Pleural No pericardial effusion. MMode/2D Measurements & Calculations LVIDd: 4.7 cm IVSd: 0.89 cm LAV(MOD-bp): 39.9 ml LVIDs: 2.9 cm LVPWd: 1.1 cm LAV(MOD-bp) Indexed: 20.2 ml/m2 FS: 39.6 % LAV(MOD-sp2): 42.3 ml LAV(MOD-sp4): 32.8 ml SV(MOD-sp4): 30.6 ml SV(sp4-el): 30.1 ml LVAd ap4: 24.2 cm2 LVLd ap4: 9.1 cm SI(MOD-sp4): 15.5 ml/m2 EDV(MOD-sp4): 57.5 ml EDV(sp4-el): 54.4 ml LVAs ap4: 14.7 cm2 LVLs ap4: 7.5 cm ESV(MOD-sp4): 27.0 ml ESV(sp4-el): 24.3 ml EF(MOD-sp4): 53.2 % EF(sp4-el): 55.3 % LA A4 area: 14.8 cm2 LA dimension(2D): 3.3 cm RA A4 area: 11.2 cm2 Time Measurements MV dec time: 0.27 sec Doppler Measurements & Calculations MV E max jorge: 67.8 cm/sec Lat Peak E' Jorge: 12.0 cm/sec Med Peak E' Jorge: 7.1 cm/sec MV A max jorge: 52.7 cm/sec E/E' lat: 5.7 E/E' med: 9.6 MV E/A: 1.3 MV V2 max: 74.1 cm/sec MV dec slope: 254.0 cm/sec2 Ao V2 max: 146.6 cm/sec MV max P.2 mmHg Ao max P.6 mmHg MV V2 mean: 39.4 cm/sec Ao V2 mean: 101.1 cm/sec MV mean P.83 mmHg Ao mean P.6 mmHg MV V2 VTI: 31.6 cm Ao V2 VTI: 32.0 cm AV (velocity ratio): 0.96 LV V1 max: 139.1 cm/sec LV V1 max P.7 mmHg LV V1 mean P.4 mmHg LV V1 mean: 99.5 cm/sec LV V1 VTI: 30.7 cm ECHO/Echo Complete Interpretation Summary The estimated ejection fraction is 65 %. No evidence for diastolic dysfunction. Ordering Physician: Kennedy Gallagher Referring Physician: Dillan Abel M.D. Performed By: Kristy Fischer RCS
--- NOTE | 2024-03-23 08:43 | MRI_ITS ---
HISTORY: radiculopathy. TECHNIQUE: Multiplanar and multisequence MR images of the cervical spine were obtained without contrast. 296 images. COMPARISON: CTA same day. FINDINGS: VERTEBRAE: Vertebral body heights maintained. Mild degenerative endplate changes at multiple levels. No other significant bone marrow signal abnormality. VERTEBRAL ALIGNMENT: Straightening of cervical lordosis without anterior or posterior subluxation. SPINAL CORD: Cervical cord signal and morphology within normal limits. SOFT TISSUES: No prevertebral fluid collection. INTERVERTEBRAL DISCS: Very mild disc bulges with uncovertebral and facet arthropathy superimposed on a developmentally narrow spinal canal. C2-3: Mild central canal stenosis. No significant foraminal narrowing. C3-4, C4-5: Mild central canal stenosis and left foraminal narrowing. C5-6: Mild central canal stenosis and bilateral foraminal narrowing. C6-7: Mild central canal stenosis and moderate bilateral foraminal narrowing. C7-T1: Minimal narrowing of thecal sac and mild bilateral foraminal narrowing. MRI/Spine Cervical (Routine) IMPRESSION: Mild multilevel degenerative disc disease superimposed on a developmentally narrow spinal canal resulting in mild spinal canal stenosis at multiple levels. Bilateral foraminal narrowing as above. Electronically Signed: Anne Marie Caballero MD at 11:16 EST ,
[2024-03-23 09:49] LABS: Hemoglobin A1c 5.1 % (3.8-5.6)
[2024-03-23 10:34] LABS: Troponin-I HS 44 pg/mL (3.0-78.0)
[2024-03-23] MEDS: Enoxaparin 40 MG/0.4 ML Syringe SC (11:15)
[2024-03-23] MEDS: 0.9% Normal Saline (1000mL) 1,000 ML 75 ML IV (12:06)
[2024-03-23 12:28] LABS: Troponin-I HS 43 pg/mL (3.0-78.0)
--- NOTE | 2024-03-23 15:09 | CASEMGMT ---
SW completed a PHQ 9 with patient as he had a stroke. Patient scored a 0 which indicates no depression. Patient denied need for counselor. Princess SALAZAR
[2024-03-23 16:58] LABS: Troponin-I HS 39 pg/mL (3.0-78.0)
[2024-03-23] MEDS: Clopidogrel Bisulfate 75 MG Tablet PO (17:01)
[2024-03-23] MEDS: Potassium Chloride Oral Tablet 20 MEQ PO (17:01)
[2024-03-23] MEDS: Atorvastatin Calcium 80 MG Tablet PO (20:24)
[2024-03-23] MEDS: MELATONIN 3 MG TABLET PO (20:28)
[2024-03-24 00:30] VITALS: BP 128/86; PULSE 48; RESP 14; TEMP 36.2; O2SAT 98
[2024-03-24] MEDS: 0.9% Normal Saline (1000mL) 1,000 ML 75 ML IV (01:38)
[2024-03-24 04:30] VITALS: BP 128/85; PULSE 48; RESP 16; TEMP 36.2; O2SAT 98
[2024-03-24 05:38] VITALS: BMI 24.7
--- NOTE | 2024-03-24 08:17 | PCM.PN.HOSP ---
Reason for Visit Reason for Visit: Diagnoses Hyperlipidemia, unspecified (03/23/24) Transient cerebral ischemic attack, unspecified (03/23/24) Essential (primary) hypertension (03/23/24) Paresthesia of skin (03/23/24) Subjective Subjective Patient seen numbness still persist but improving. Plans for patient to be discharged home following assessment by [facility] Objective Data Objective Data Vital Signs: Vital Signs Temp Pulse Resp BP Pulse Ox O2 Del Method 97.1 F L 48 L 16 128/85 H 98 Room Air 03/24/24 04:30 03/24/24 04:30 03/24/24 04:30 03/24/24 04:30 03/24/24 04:30 03/24/24 07:29 Oxygen Delivery Method Room Air Weight: 78.3 kg Body Mass Index (BMI) 24.7 Intake & Output: Intake and Output for Last 24 Hours 03/22/24 03/23/24 03/24/24 23:59 23:59 23:59 Intake Total 760 / 760 1240 / 1240 Balance 760 / 760 1240 / 1240 Lab / Micro Data 03/24/24 07:15 03/24/24 07:15 Labs: Laboratory Results - last 24 hr 03/23/24 06:23: Hemoglobin A1c 5.1 03/23/24 10:11: Troponin I High Sens 44 03/23/24 12:08: Troponin I High Sens 43 03/23/24 16:00: Troponin I High Sens 39 Radiography Diagnostic Testing: Radiology Impression Chest X-Ray 03/23/24 07:45 IMPRESSION: No acute cardiopulmonary process identified. Electronically Signed: Anne Marie Caballero MD at 8:20 EST , Brain MRI 03/23/24 08:06 IMPRESSION: Small acute right parietal infarct. Chronic small left occipital infarct. Mild chronic white matter changes. Electronically Signed: Anne Marie Caballero MD at 10:59 EST , ADDENDUM: 03/23/24 1156 IMPRESSION: Small acute right parietal infarct. Chronic small left occipital infarct. Mild chronic white matter changes. N.B. : Kirsten Espinoza RN, confirmed on 03/23/2024 11:49:21 (ET) that the healthcare facility has received the radiology report. Electronically Signed: Anne Marie Caballero MD at 10:59 EST , Echocardiogram 03/23/24 08:06 Interpretation Summary The estimated ejection fraction is 65 %. No evidence for diastolic dysfunction. Ordering Physician: Kennedy Gallagher Referring Physician: Dillan Abel M.D. Performed By: Kristy Fischer RCS Cervical Spine MRI 03/23/24 08:43 IMPRESSION: Mild multilevel degenerative disc disease superimposed on a developmentally narrow spinal canal resulting in mild spinal canal stenosis at multiple levels. Bilateral foraminal narrowing as above. Electronically Signed: Anne Marie Caballero MD at 11:16 EST , Physical Exam Narrative GENERAL: cooperative HEENT: Atraumatic; normocephalic EYES; Anicteric, Normal Conjunctiva NECK; supple, normal thyroid, RESPIRATORY: Diminished to auscultation CARDIOVASCULAR: Regular S1 S2, GI: soft, normoactive bowel sounds, : No Renal angle tenderness; EXTREMITIES: No edema, no clubbing, MUSCULOSKELETAL: no muscle wasting NEURO: Awake; no lateralizing signs. SKIN: No Rash PSYCH; Flat affect Assessment & Plan Assessment/Plan (1) Hypertension: (2) Hyperlipidemia: (3) TIA (transient ischemic attack): (4) Paresthesia: PLAN: Plan Patient is a 68-year-old gentleman presenting with subjective weakness involving the left upper extremity with numbness on the left side. Admitted to a monitored bed for subsequent management 1. Left-sided paresthesias ? Patient has been admitted to monitored bed currently being worked up as a case of suspected TIA given his improving symptoms. As part of his management ordered MRI of the brain as well as MRI of the cervical spine patient was started on antiplatelet therapy with aspirin atorvastatin and also did order 2D echo. CTA of the head and neck obtained in the ED came back unremarkable consult was placed to [facility] 2. Hypertension ? Blood pressure controlled, home medications continued with dose adjustment as needed 3. Dyslipidemia ? Per history currently not on any medication patient was started on atorvastatin 4. Chronic alcohol use counseled on cessation 5. History of previous tobacco dependence ? Patient is in remission continued cessation encouraged 6. DVT prophylaxis ? On enoxaparin Time spent in the patient's overall evaluation,decision-making process, review of diagnostic data, adjustment of management, discussion with other providers, nursing nursing and ancillary staff involved in patient's care documentation, 75 Minutes Advance planning; did discuss with the patient and family regarding advanced directives as well as CODE STATUS. Did explain the various scenarios involved ( FULL CODE, DNR CCA, DNR CCA with no intubation, and DNR CC and what each meant) patient elected to to remain full code with CPR intubation if needed. Order was placed. Time spent on discussion 16 minutes.
[2024-03-24 08:30] VITALS: BP 142/87; PULSE 56; RESP 16; TEMP 36.6; O2SAT 100
[2024-03-24 08:35] VITALS: O2SAT 96
[2024-03-24 08:35] LABS: Basophil# 0.04 X10^3/uL; Basophil% 0.8 % (0-1); Eosinophil# 0.27 X10^3/uL; Eosinophils% 5.2 % (0-5); Hematocrit 41.8 % (40-54); Hemoglobin 14.3 g/dL (13.0-16.5); Lymphocyte % 25.1 % (19-41); Mean Corp Hgb Conc 34.2 g/dL (32-36); Mean Corpuscular Hgb 29.8 pg (27.0-32.0); Mean Corpuscular Volume 87.1 fL (80-94); Monocyte# 0.52 X10^3/uL; NRBC Flagged by Analyzer 0 % (0-5); Neutrophil # 3.03 X10^3/uL (2.7-7.7); Neutrophil % 58.5 % (47-70); Platelet Count 245 K/mm3 (150-450); RBC Distribution Width CV 12.5 % (11.6-14.6); RBC Distribution Width SD 40.2 fl (35.1-43.9); White Blood Count 5.2 K/mm3 (4.4-11.0)
[2024-03-24 09:09] LABS: Anion Gap 5 (5-15); BUN 13 mg/dL (7-18); BUN/Creat Ratio 13.9 RATIO (10-20); Calcium,Total 8.5 mg/dL (8.5-10.1); Chloride 110 mmol/L (98-107); Cholesterol 177 mg/dL (200); Creatinine, Serum 0.93 mg/dL (0.70-1.30); EST Glomerular Filtration Rate 86 mL/min (>60); Est Glom Filt Rate - Afr Amer 104 mL/min (>60); Estimated Creatinine Clearance 80.68 ml/min; Glucose 98 mg/dL (74-106); High Density Lipoprotein 57 mg/dL; Magnesium 2.4 mg/dL (1.6-2.6); Phosphorus 1.8 mg/dL (2.5-4.9); Potassium 3.6 mmol/L (3.5-5.1); Sodium Level 140 mmol/L (136-145); Triglycerides 83 mg/dL; Very Low Density Lipoprotein 17 mg/dL (5-40)
[2024-03-24] MEDS: Clopidogrel Bisulfate 75 MG Tablet PO (09:20)
[2024-03-24] MEDS: Enoxaparin 40 MG/0.4 ML Syringe SC (09:20)
[2024-03-24] MEDS: Aspirin 325 MG Tablet PO (09:21)
[2024-03-24] MEDS: Potassium Chloride Oral Tablet 20 MEQ PO (09:21)
--- NOTE | 2024-03-24 10:43 | NEURO.CONS ---
Assessment and Plan: Neuro Assessment/Plan OCSAR MAHER, is a 68 M with HTN, HLD and old left [employer] stroke in 2021 who presents sudden onset left arm weakness and numbness. He woke up 03/23/24 at 4am with left arm weakness and numbness. Symptoms were improving but not better so he went to OSH on 03/23/24. CT/CTA were neg. MRI brain shows acute ischemic embolic appearing stroke on the right parietal lobe. Old left [employer]IAN stroke seen. Strokes are cryptogenic. TTE neg. LDL 104. Has been off ASA for a while due to runnning out. - Assessment: Presentation is secondary to acute right parietal acute ischemic stroke. Cyrptogenic. - Plan: Cont ASA 81mg. Increase statin. plavix 75mg for 21d. cv risk factor optimization. 30d event monitor at co. No further recs at this time. f/u with pcp and neuro at co. Please reachout for any questions or concerns. Stroke to sign off at this time. HPI Consult Data Date of Consult: 03/24/24 HPI Narrative HPI Narrative: OSCAR MAHER, is a 68 M with HTN, HLD and old left W[employer] COMM[employer]IAN stroke in 2021 who presents sudden onset left arm weakness and numbness. He woke up 03/23/24 at 4am with left arm weakness and numbness. Symptoms were improving but not better so he went to OSH on 03/23/24. CT/CTA were neg. MRI brain shows acute ischemic embolic appearing stroke on the right parietal lobe. Old left W[employer] COMM[employer]IAN stroke seen. Strokes are cryptogenic. TTE neg. LDL 104. Has been off ASA for a while due to runnning out. Presentation is secondary to acute right parietal acute ischemic stroke. Cyrptogenic. Cont ASA 81mg. Increase statin. cv risk factor optimization. 30d event monitor at co. No further recs at this time. f/u with pcp and neuro at co. Please reachout for any questions or concerns. Stroke to sign off at this time. [facility] Medical History HLD (hyperlipidemia) HTN (hypertension) TIA (transient ischemic attack) Home Medications ?Medication ?Instructions ?Recorded ?Last Taken ?Type amlodipine 10 mg tablet 10 mg PO DAILY BP 03/23/24 Unknown History atorvastatin 20 mg tablet (Lipitor) 20 mg PO QHS CHOLESTEROL 03/23/24 Unknown History lisinopril 20 2 tab PO DAILY bp 03/23/24 Unknown History mg-hydrochlorothiazide 12.5 mg tablet potassium chloride 8 mEq 8 meq PO DAILY supplement 03/23/24 Unknown History capsule,extended release Allergy/AdvReac Type Severity Reaction Status Date / Time No Known Allergies Allergy Verified 03/23/24 06:24 Surgical History Hx of appendectomy Hx of tonsillectomy Social History (Updated 03/23/24 @ 08:52 by Kiera Sihne) housing: house Smoking Status: Never smoker Vital Signs Vital Signs Vital Signs: 03/23/24 11:29 03/23/24 11:29 03/23/24 12:56 Temperature 98 F Temperature Source Oral Pulse Rate 56 L Pulse Strength Respiratory Rate 14 Respiratory Effort Respiratory Depth Respiratory Pattern Blood Pressure 140/85 H Blood Pressure Mean 103 Blood Pressure Source Monitor Blood Pressure Position Semi-Fowlers Blood Pressure Location Right Arm Pulse Ox 100 100 97 Oxygen Delivery Method Room Air Room Air Room Air 03/23/24 16:50 03/23/24 16:51 03/23/24 19:30 Temperature 98.2 F Temperature Source Oral Pulse Rate 52 L Pulse Strength Normal (2+) Respiratory Rate 15 Respiratory Effort Normal Respiratory Depth Respiratory Pattern Blood Pressure 140/85 H Blood Pressure Mean 103 Blood Pressure Source Monitor Blood Pressure Position Blood Pressure Location Pulse Ox 97 Oxygen Delivery Method Room Air 03/23/24 19:30 03/23/24 20:22 03/24/24 00:30 Temperature 97.3 F L 97.2 F L Temperature Source Temporal Temporal Pulse Rate 52 L 48 L Pulse Strength Respiratory Rate 16 14 Respiratory Effort Normal Non-Labored Respiratory Depth Normal Respiratory Pattern Normal Blood Pressure 136/85 H 128/86 H Blood Pressure Mean 102 100 Blood Pressure Source Monitor Monitor Blood Pressure Position Semi-Fowlers Supine Blood Pressure Location Right Arm Right Arm Pulse Ox 96 98 Oxygen Delivery Method Room Air Room Air Room Air 03/24/24 04:30 03/24/24 07:29 03/24/24 07:29 Temperature 97.1 F L Temperature Source Temporal Pulse Rate 48 L Pulse Strength Normal (2+) Respiratory Rate 16 Respiratory Effort Normal Non-Labored Respiratory Depth Normal Respiratory Pattern Normal Blood Pressure 128/85 H Blood Pressure Mean 99 Blood Pressure Source Monitor Blood Pressure Position Supine Blood Pressure Location Right Arm Pulse Ox 98 Oxygen Delivery Method Room Air Room Air 03/24/24 08:30 03/24/24 08:35 Temperature 97.9 F Temperature Source Temporal Pulse Rate 56 L Pulse Strength Respiratory Rate 16 Respiratory Effort Respiratory Depth Respiratory Pattern Blood Pressure 142/87 H Blood Pressure Mean 105 Blood Pressure Source Monitor Blood Pressure Position Semi-Fowlers Blood Pressure Location Left Arm Pulse Ox 100 96 Oxygen Delivery Method Room Air Room Air Weight Weight: 78.3 kg Body Mass Index (BMI) 24.7 NIHSS NIHSS Nursing Documentation NIHSS Nursing Documentation: NIHSS: Ischemic Stroke/TIA Start: 03/23/24 08:43 Text: For PCU Patients: NIH and Neuro Check every 4 Status: Active hours, PRN and with change in RN caregiver. Freq: [id number] Protocol: Activity Type Activity Date Activity User E-sign Co-sign Detail Recorded Client Recorded Date Recorded By Document 03/24/24 08:30 [id number] 03/24/24 09:19 DAVID 03/24/24 08:30 NIH Stroke Scale [NIHSS] A score of 0 is normal or asymptomatic . Total possible score is 42. Inpatient: RN or Physician to activate a stroke alert for onset of new stroke symptoms or with NIHSS increase >/= 3 points. Following change in neurological status, NIHSS will be performed per physician order or more frequently PRN. -1a. Level of Consciousness Alert; keenly responsive -1b. LOC Questions Answers BOTH questions correctly. -1c. LOC Commands Performs both tasks correctly . -2. Best Gaze Normal -3. Visual No visual loss -4. Facial Palsy Normal symmetrical movements -5a. Left Arm No drift; arm holds 90 (or 45 ) degrees for full 10 seconds -5b. Right Arm No drift; arm holds 90 (or 45 ) degrees for full 10 seconds -6a. Left Leg No drift; leg holds 30-degree position for full 5 seconds -7. Limb Ataxia Absent -8. Sensory Mild-to- moderate sensory loss; -9. Best Language No aphasia; normal -10. Dysarthria Normal -11. Extinction and Inattention No abnormality -Total 1 Query Text:A score of 0 is normal or asymptomatic. Total possible score is 42 . ED: Notify Physician for NIHSS increase by > / = 3 points. Inpatient: RN or Physician to activate a stroke alert for NIHSS increase of > / = 3 points. Coma Scale [Assess] -Eye Opening Spontaneous -Motor Obeys Commands -Verbal Oriented [Total] -Coma Scale Total 15 Physical Exam Narrative Physical Exam: - General: NAD, pleasant, cooperative, well nourished, well developed - Head/Eyes: Atraumatic, normocephalic, clear cornea, normal sclera/conjunctive - Neuro: ? Mental Status: AAOX4 & following simple commands. ? Speech: Clear and fluent with good repetition, comprehension, & naming. No aphasia or dysarthria ? CN II: Visual diego are full to confrontation. ? CN III, IV, : EOMI, no gaze preference, no nystagmus, no ptosis ? CN V: Facial sensation is intact to light touch throughout. ? CN VII: Face is symmetric with normal eye closure and smile. ? CN VII: Hearing is grossly normal to conversational speech. ? CN XI: Head turning, and shoulder shrug are intact. ? Motor: Able to sustain all limbs ? Sensation: Dec sensation in left hand ? Coordination: Normal FTN & HTS. No abn movements seen. Lab / Micro Data 03/24/24 07:15 03/24/24 07:15 Labs: Laboratory Results - last 24 hr 03/23/24 12:08: Troponin I High Sens 43 03/23/24 16:00: Troponin I High Sens 39 03/24/24 07:15: WBC 5.2, RBC 4.80, Hgb 14.3, Hct 41.8, MCV 87.1, MCH 29.8, MCHC 34.2, RDW Std Deviation 40.2, RDW Coeff of Shayne 12.5, Plt Count 245, MPV 10.0, Immature Gran % (Auto) 0.400, Neut % (Auto) 58.5, Lymph % (Auto) 25.1, [place] % (Auto) 10.0, Eos % (Auto) 5.2 H, Baso % (Auto) 0.8, Absolute Neuts (auto) 3.0, Absolute Lymphs (auto) 1.30, Nucleated RBC % 0, Sodium 140, Potassium 3.6, Chloride 110 H, Carbon Dioxide 24.0, Anion Gap 5, BUN 13, Creatinine 0.93, Estim Creat Clear Calc 80.68, Est GFR (MDRD) Af Amer 104, Est GFR (MDRD) Non-Af 86, BUN/Creatinine Ratio 13.9, Glucose 98, Calcium 8.5, Phosphorus 1.8 L, Magnesium 2.4, Triglycerides 83, Cholesterol 177, LDL Cholesterol 103, VLDL Cholesterol 17, HDL Cholesterol 57 Imaging Radiology Impression Brain MRI 03/23/24 08:06 IMPRESSION: Small acute right parietal infarct. Chronic small left occipital infarct. Mild chronic white matter changes. Electronically Signed: Anne Marie Caballero MD at 10:59 EST , ADDENDUM: 03/23/24 1156 IMPRESSION: Small acute right parietal infarct. Chronic small left occipital infarct. Mild chronic white matter changes. N.B. : Kirsten Espinoza RN, confirmed on 03/23/2024 11:49:21 (ET) that the healthcare facility has received the radiology report. Electronically Signed: Anne Marie Caballero MD at 10:59 EST , Echocardiogram 03/23/24 08:06 Interpretation Summary The estimated ejection fraction is 65 %. No evidence for diastolic dysfunction. Ordering Physician: Kennedy Gallagher Referring Physician: Dillan Abel M.D. Performed By: Kristy Fischer RCS Cervical Spine MRI 03/23/24 08:43 IMPRESSION: Mild multilevel degenerative disc disease superimposed on a developmentally narrow spinal canal resulting in mild spinal canal stenosis at multiple levels. Bilateral foraminal narrowing as above. Electronically Signed: Anne Marie Caballero MD at 11:16 EST , Active Medications Active Medications Active Medications: Current Medications Generic Name Dose Route Start Last Admin Trade Name Freq PRN Reason Stop Dose Admin Acetaminophen 650 mg 03/23/24 08:43 Acetaminophen 325 Mg Tablet PO Q6H PRN PRN Pain 1-10 Or Fever>100.7 Al Hydroxide/Mg Hydroxide 30 ml 03/23/24 08:43 Mag Hydrox/Al Hydrox/Simeth 30 Ml Udc PO Q6H PRN PRN Gastric Burning Aspirin 325 mg 03/24/24 08:00 03/24/24 09:21 Aspirin 325 Mg Tablet PO 325 mg BREAKFAST EDDI Administration Atorvastatin Calcium 80 mg 03/23/24 22:00 03/23/24 20:24 Atorvastatin Calcium 80 Mg Tablet PO 80 mg QHS EDDI Administration Clopidogrel Bisulfate 75 mg 03/23/24 15:55 03/24/24 09:20 Clopidogrel Bisulfate 75 Mg Tablet PO 75 mg DAILY EDDI Administration Enoxaparin Sodium 40 mg 03/23/24 10:00 03/24/24 09:20 Enoxaparin 40 Mg/0.4 Ml Syringe SC 40 mg DAILY EDDI Administration Guaifenesin 20 ml 03/23/24 08:43 Guaifenesin 10 Ml Udc (200mg/10ml) PO Q4H PRN PRN COUGH Sodium Chloride 1,000 mls @ 75 mls/hr 03/23/24 08:43 03/24/24 01:38 IV 03/24/24 11:22 75 mls/hr .[id number] EDDI Administration Protocol Sodium Chloride 100 mls @ 15 mls/hr 03/23/24 08:51 IV .Q6H40M PRN Saline Flush Sodium Chloride 100 mls @ 15 mls/hr 03/23/24 08:51 IV .Q6H40M PRN Additional IVPB Infusion Melatonin 3 mg 03/23/24 08:43 03/23/24 20:28 Melatonin 3 Mg Tablet PO 3 mg QHS PRN PRN Administration INSOMNIA Nitroglycerin 0.4 mg 03/23/24 08:43 Nitroglycerin (Inpatient Use) 0.4 Mg Tab.Subl SL Q5M PRN CARDIAC/CHEST PAIN Ondansetron HCl 4 mg 03/23/24 08:43 Ondansetron 4 Mg/2 Ml Vial IV Q8H PRN PRN NAUSEA/VOMITING Potassium Chloride 20 meq 03/23/24 17:00 03/24/24 09:21 Potassium Chloride Oral Tablet 20 Meq PO 20 meq BIDCM EDDI Administration Senna/Docusate Sodium 2 tablet 03/23/24 08:43 Senna/Docusate Sodium 1 Tablet PO BID PRN PRN Constipation Sodium Chloride 10 - 40 ml 03/23/24 08:51 0.9% Saline Lock 10 Ml Syringe IV UD PRN SALINE FLUSH
--- NOTE | 2024-03-24 11:24 | PCM.DC.SUM ---
Providers Date of Admission: 03/23/24 Date of Discharge: 03/24/24 Primary Care Physician: Dr. Dillan Abel MD Consultations 03/23/24 08:43 Consult: Tele-Neurology Routine Consulting Provider: [facility] Reason for Consult: Acute Ischemic Stroke/TIA EMERGENT Consult: No Notified: Yes Date Notified: 03/23/24 Time Notified: 09:12 Method of Notification: Answering Service Nursing Unit Staff Notify [facility] of Tele-Neurology Consult: Yes Reason For Visit: TIA Diagnosis Discharge Diagnosis (1) Hypertension: Status: Chronic Code(s): I10 - Essential (primary) hypertension (2) Hyperlipidemia: Status: Acute Code(s): E78.5 - Hyperlipidemia, unspecified (3) TIA (transient ischemic attack): Status: Acute Code(s): G45.9 - Transient cerebral ischemic attack, unspecified (4) Paresthesia: Status: Acute Code(s): R20.2 - Paresthesia of skin Plan Patient is a 68-year-old gentleman presenting with subjective weakness involving the left upper extremity with numbness on the left side. Admitted to a monitored bed for subsequent management 1. Left-sided paresthesias ? Patient has been admitted to monitored bed currently being worked up as a case of suspected TIA given his improving symptoms. As part of his management ordered MRI of the brain as well as MRI of the cervical spine patient was started on antiplatelet therapy with aspirin atorvastatin and also did order 2D echo. CTA of the head and neck obtained in the ED came back unremarkable consult was placed to [facility] teleneuro ? 03/24/2023; [facility] recommended for patient to be discharged on Plavix aspirin statin therapy and a 30-day event monitor 2. Hypertension ? Blood pressure controlled, home medications continued with dose adjustment as needed 3. Dyslipidemia ? Per history currently not on any medication patient was started on atorvastatin 4. Chronic alcohol use counseled on cessation 5. History of previous tobacco dependence ? Patient is in remission continued cessation encouraged 6. DVT prophylaxis ? On enoxaparin Time spent in the patient's overall evaluation,decision-making process, review of diagnostic data, adjustment of management, discussion with other providers, nursing nursing and ancillary staff involved in patient's care documentation, 35 minutes Medications at Discharge Home Medications amlodipine 10 mg tablet 10 mg PO DAILY BP 03/23/24 lisinopril 20 mg-hydrochlorothiazide 12.5 mg tablet 2 tab PO DAILY bp 03/23/24 potassium chloride 8 mEq capsule,extended release 8 meq PO DAILY supplement 03/23/24 aspirin 325 mg tablet 325 mg PO BREAKFAST #90 tabs 03/24/24 atorvastatin 80 mg tablet 80 mg PO QHS #90 tabs 03/24/24 clopidogrel 75 mg tablet 75 mg PO DAILY #20 tabs 03/24/24 Physical Exam Narrative GENERAL: cooperative HEENT: Atraumatic; normocephalic EYES; Anicteric, Normal Conjunctiva NECK; supple, normal thyroid, RESPIRATORY: Diminished to auscultation CARDIOVASCULAR: Regular S1 S2, GI: soft, normoactive bowel sounds, : No Renal angle tenderness; EXTREMITIES: No edema, no clubbing, MUSCULOSKELETAL: no muscle wasting NEURO: Awake; no lateralizing signs. SKIN: No Rash PSYCH; Flat affect Weight / BMI Weight Weight: 78.3 kg Body Mass Index (BMI) 24.7 ABG / Lab / Microbiology Data 03/24/24 07:15 03/24/24 07:15 Laboratory: Laboratory Results - last 24 hr 03/23/24 12:08: Troponin I High Sens 43 03/23/24 16:00: Troponin I High Sens 39 03/24/24 07:15: WBC 5.2, RBC 4.80, Hgb 14.3, Hct 41.8, MCV 87.1, MCH 29.8, MCHC 34.2, RDW Std Deviation 40.2, RDW Coeff of Shayne 12.5, Plt Count 245, MPV 10.0, Immature Gran % (Auto) 0.400, Neut % (Auto) 58.5, Lymph % (Auto) 25.1, [place] % (Auto) 10.0, Eos % (Auto) 5.2 H, Baso % (Auto) 0.8, Absolute Neuts (auto) 3.0, Absolute Lymphs (auto) 1.30, Nucleated RBC % 0, Sodium 140, Potassium 3.6, Chloride 110 H, Carbon Dioxide 24.0, Anion Gap 5, BUN 13, Creatinine 0.93, Estim Creat Clear Calc 80.68, Est GFR (MDRD) Af Amer 104, Est GFR (MDRD) Non-Af 86, BUN/Creatinine Ratio 13.9, Glucose 98, Calcium 8.5, Phosphorus 1.8 L, Magnesium 2.4, Triglycerides 83, Cholesterol 177, LDL Cholesterol 103, VLDL Cholesterol 17, HDL Cholesterol 57 Radiography Diagnostic Testing: Radiology Impression Brain MRI 03/23/24 08:06 IMPRESSION: Small acute right parietal infarct. Chronic small left occipital infarct. Mild chronic white matter changes. Electronically Signed: Anne Marie Caballero MD at 10:59 EST Reading Location ID and State: [facility] / [place] Tel , Service support , ADDENDUM: 03/23/24 1156 IMPRESSION: Small acute right parietal infarct. Chronic small left occipital infarct. Mild chronic white matter changes. N.B. : Kirsten Espinoza RN, confirmed on 03/23/2024 11:49:21 (ET) that the healthcare facility has received the radiology report. Electronically Signed: Anne Marie Caballero MD at 10:59 EST Reading Location ID and State: [facility] / [place] Tel , Service support , Echocardiogram 03/23/24 08:06 Interpretation Summary The estimated ejection fraction is 65 %. No evidence for diastolic dysfunction. Ordering Physician: Kennedy Gallagher Referring Physician: Dillan Abel M.D. Performed By: Kristy Fischer RCS D/C Instructions Discharge Diet: No restrictions Discharge Activity: Return to Normal Activity Call your doctor if you observe: Fever of 101 or Higher, Shortness of breath, Fainting spells and Chest pain DC O2, CPAP, BIPAP Needs Home O2 Discharge instructions: No Meaningful Use Info Meaningful Use Meaningful Use Diagnoses (Choose all that apply): Ischemic CVA CVA Therapy Assessed for PT,OT and/or ST?: Yes Ischemic Stroke Antithrombotic order at d/c?: Yes Dx of Atrial fib/flutter?: No Statin Dosing Therapy Reference: STATIN DOSE THERAPY REFERENCE: * Patients > 75 years receive moderate or high dose statin therapy. * Patients 75 years or YOUNGER should receive HIGH intensity statin dose unless contraindicated. You will be required to document reason for non-treatment if statin daily dose does not meet guidelines. HIGH DOSE STATIN THERAPY DAILY Atorvastatin > than or = to 40 mg Rosuvastatin > than or = to 20 mg Amlodipine + Atorvastatin > than or = to 2.5/40 mg Ezetimibe + Simvastatin 10/80 mg Simvastatin 80mg Statins at discharge?: Yes If patient is 75 or younger, pt will be discharged on HIGH intensity statin.: Yes Primary Dx Acute Ischemic CVA?: Yes IV thrombolytic ordered during stay?: No Reason IV thrombolytic not ordered: Treatment not Indicated Discharge Plan Admission Admit Date/Time: 03/23/24 07:49 Attending Provider: Kennedy Gallagher Primary Care Provider: Dillan Abel Consulting Providers: Erasto Mckeon; Brittany Cartagena; Skyla Carrillo; Liv Romano; Meredith Cervantes; Lamin Davila; Olivia Hidalgo; Silas Joel; Jaquan Acosta; Ean Guerra; Kimberlyn Hodgson; Niko Murray; Sada Boles; Salvatore Woodall; Libia Dunn; Jack Murillo; Tenisha Staton; Anthony Blackburn; Jadyn Hernandez; Malou Kevin Discharge Orders/Prescriptions Prescriptions: New atorvastatin 80 mg Tablet 80 mg PO QHS Qty: 90 0RF aspirin 325 mg Tablet 325 mg PO BREAKFAST Qty: 90 0RF clopidogrel 75 mg Tablet 75 mg PO DAILY Qty: 20 0RF Continued lisinopril-hydrochlorothiazide 20-12.5 mg tablet 2 tab PO DAILY potassium chloride 8 mEq capsule, extended release 8 meq PO DAILY amlodipine 10 mg tablet 10 mg PO DAILY Discontinued atorvastatin [Lipitor] 20 mg tablet 20 mg PO QHS Other Ambulatory Orders: 30 Day Event Recorder Preventi (Urgent) Timeframe: 1 Day Facility: [facility] - Location: Cardiovascular Services Ordered By: Dr. Kennedy Gallagher Referrals / Follow Up: Dillan Abel MD [Primary Care Provider] - Disposition Disposition (needs filled in before D/C Order can be placed): Home, Self Care Charges/Coding Visit Charges Inpatient E&M: 92170 Disch Hosp >30min
[2024-03-24 11:32] VITALS: BP 147/87; PULSE 56; RESP 16; TEMP 36.6; O2SAT 99
--- NOTE | 2024-03-24 12:12 | CASEMGMT ---
Patient has order for discharge. RN CM in to discuss needs at discharge. Patient denies needs or help at discharge. Patient had no furhter questions or concerns.
--- NOTE | 2024-03-24 12:51 | CASEMGMT ---
PAYTON CM in to complete MOSS Form with patient. PAYTON EMERSON explained MOSS form to patient, patient voiced understanding. Patient signed MOSS Form and filed in chart. Patient provided copy of signed MOSS form. Patient had no further questions or concerns.
== END 2024-03-24 11:26 | disposition home or self-care (01) ==
LOC: ED 07:24 → PCU 07:59
PROVIDERS: Admitting Provider Internal Medicine; Emergency Provider Emergency Medicine; PCP Internal Medicine; Visit Provider Internal Medicine
DX: R20.2 Paresthesia of skin (principal); Z87.891 Personal history of nicotine dependence; I10 Essential (primary) hypertension; Z79.82 Long term (current) use of aspirin; E78.5 Hyperlipidemia, unspecified; R53.1 Weakness; R20.0 Anesthesia of skin; Z79.899 Other long term (current) drug therapy; Z86.73 Personal history of transient ischemic attack (TIA), and cerebral infarction without residual deficits; I07.1 Rheumatic tricuspid insufficiency; R00.1 Bradycardia, unspecified
CPT/HCPCS: 36415; 70450; 70496; 70498; 70551; 71045; 72141; 80048; 80061; 82962; 83036; 83735; 84100; 84484; 85025; 85610; 85730; 92610; 93005; 93306; 94762; 96361; 96372; 96374; 97161; 97166; 97535; 97802; 99221; 99252; 99284; Q9967; A4216; G0378; G0463